=== PATIENT | female | born 1955 | race Caucasian/White ===

== ENCOUNTER 2018-08-11 08:29 | Day surgery (SDC) | payer BC, SELFPAY ==
[2018-08-11 08:30] VITALS: BP 135/77; PULSE 70; RESP 18; TEMP 36.3; O2SAT 99
[2018-08-11] MEDS: Lactated Ringers 1,000 ML 80 ML IV (09:19)
[2018-08-11] MEDS: ceFAZolin 2 GM/50 ML BAG IVPB (10:13)
[2018-08-11] MEDS: Lidocaine 1% Multi-Dose 50 ML VIAL (10:26)
--- NOTE | 2018-08-11 10:49 | PDOC.DSDIS_ITS ---
Discharge Plan Disposition Patient Disposition: HOME Condition: Good Discharge Details Reason For Visit: Tracy Solano's Tenosynovitis Attending Provider: Lauri Mayo Primary Care Provider: Scot Naidu Home Meds and New Rx's Prescriptions: New acetaminophen 500 mg tablet 1,000 mg PO Q8H PRN (Reason: pain) Qty: 60 RF: 3 hydrocodone-acetaminophen 5-325 mg tablet 1 tab PO Q4H PRN (Reason: pain) Qty: 6 RF: 0 ibuprofen 600 mg tablet 600 mg PO TID PRNQty: 60 RF: 3 Continued zolpidem [Ambien] 5 mg tablet 5 mg PO HS PRN (Reason: insomnia) Qty: 14 RF: 0 cetirizine [Zyrtec] 10 MG tablet 10 mg PO daily prn RF: 0 CBD OIL 1 applic Topical BID PRNRF: 0 CBD OIL 5 drp PO BID PRNRF: 0 paroxetine HCl 10 mg tablet 10 mg PO DAILY Qty: 30 RF: 3 Discontinued ibuprofen [Advil Liqui-Gel] 200 MG capsule 600 mg PO BID PRN RF: 0 meloxicam 15 mg tablet 15 mg PO DAILY PRN (Reason: pain) Qty: 30 RF: 5 Discharge Instructions Additional Instructions: Activity: You should keep the hand elevated as much as possible for the first few days. You may use the other fingers as tolerated but avoid trying to do too much too soon. You may perform light activities with the splint in place. After 7 days, you may remove the splint if you desire and use the hand for light activity. A removable brace may be worn in its place for comfort. Dressing/Cast: Your splint should stay in place at all times for the first 7 days. Do NOT get it wet. You may loosen the KHAI wrap if you feel it is too tight and then rewrap more loosely. You should keep a bandaid on the wound until followup. Medications: - You should take Tylenol and Ibuprofen for baseline pain control. - You have Hydrocodone for breakthrough pain. - You may apply ice over the thumb. Follow-up: 10-14 days Referrals: Lauri Mayo MD [ [facility] STAFF PHYSICIAN] - Equipment/Supplies: Splint Activity:: Elevate Remove Dressings/Wound Care:: 72 hours Shower/Bathe:: 72 hours Diet:: As Tolerated Discharge Orders Discharge Orders: Discharge Order (Routine); Ordered 08/11/18 Ordered By: Lauri Mayo DS: Diagnosis Discharge Diagnosis (1) Tenosynovitis, de Quervain: Status: Acute
[2018-08-11 11:25] VITALS: BP 126/79; PULSE 62; RESP 16; TEMP 35.9; O2SAT 98
--- NOTE | 2018-08-11 22:27 | W.PM.OP ---
Date of service: 08/11/18 Time of Service: 11:27 Operative Note DATE OF PROCEDURE: 08/11/18 PRE-OP DIAGNOSIS: Right Dequervain's Tenosynovitis POST-OP DIAGNOSIS: same PROCEDURE: Right First Extensor Compartment Release SURGEON: Lauri Mayo ANESTHESIA: MAC ESTIMATED BLOOD LOSS: 0 PATHOLOGY: none sent TOURNIQUET TIME: 14 COMPLICATIONS: None Patient was transported to: same day Patient's condition: stable Indications: Unruly is a 63-year-old female who has had symptoms of dequerveins tenosynovitis. Nonoperative treatment options had been trialed. Given their failure, I offered operative intervention. I reviewed the technical details of a first extensor compartment release. I reviewed the risk of the procedure to include bleeding, infection, pain, stiffness, tendon instability, damage to the superficial radial nerve, and complete release. Despite these risks, the patient elected to proceed. Findings: There was a tightened first excessive compartment. No subcompartments were seen encasing the EPB tendon. There were 2 main slips of APL tendon. Procedure Description: Unruly was greeted in the preoperative holding area. Name and surgical site were confirmed. The history and physical was completed. The consent was reviewed the patient and signed. Unruly was taken back to the operating room. The patient was placed and monitored anesthesia care. The RIGHT was then prepped with ChloraPrep and draped in a standard fashion after a nonsterile tourniquet was placed high up onto the arm. Prophylactic antibiotics in the form of cefazolin were administered. A timeout was performed for safe surgery. The surgical site was drawn on the skin. The planned surgical field was anesthetized with 0.25% bupivacaine with epinephrine. The limb was exsanguinated and the tourniquet was inflated where it stayed for 14 minutes. A 2 cm incision was made longitudinally over the radial styloid. The skin was incised only. The deep tissue subtenons fat was dissected with a tenotomy scissors trying to protect bridge of the superficial radial nerve. Any branches that were identified were retracted out of the way. The first compartment extensor tendons were then identified. The distal aspect of the first compartment was noted and were released. This release was performed more on the dorsal side to prevent tendon subluxation. The entirety of the first extensor compartment was then released. The slips of the abductor pollicis longus tendon were inspected. They removed to confirm the appropriate motion of the thumb. The extensor pollicis brevis tendon was then identified. It was fully released. Traction on the tendon was also used to confirm appropriate extension of the thumb confirming the release of the appropriate tendon. The dorsal radial surface of the radius was once again inspected to make sure there is no other sub-compartments or other restrictions to tendon motion. The wound was then thoroughly irrigated. The deep tissue was closed with a 3-0 Vicryl. The skin was closed with a running subjective 4-0 Monocryl. Skin glue was applied. The tourniquet is released without significant bleeding. The hand was dressed with 4 x 4's, web roll, thumb spica splint. I did occasional counts are correct. Patient was transferred back to same day surgery area in stable condition.
== END 2018-08-11 11:55 | disposition home or self-care (01) ==
PROVIDERS: PCP Family Medicine; Visit Provider Student in an Organized Health Care Education/Training Program
PROC: (CPT 25000; principal; 2018-08-11 10:15)
DX: M65.4 Radial styloid tenosynovitis [de Quervain] (principal)
CPT/HCPCS: 25000; J0690; J1885; L3650

== ENCOUNTER 2019-12-14 03:20 | Outpatient (CLI) | payer BC, SELFPAY ==
[2019-12-14 14:28] LABS: Abs Immature Grans 0.03 10^3/uL (0.0-0.06); Absolute Basophil Count 0.05 10^3/uL (0.0-0.2); Absolute Eosinophil Count 0.05 10^3/uL (0.0-0.7); Absolute Lymphocyte Count 2.32 10^3/uL (1.2-3.4); Absolute Monocyte Count 0.33 10^3/uL (0.1-0.8); Absolute Neutrophil Count 4.34 10^3/uL (1.2-6.7); Basophils % 0.7; Eosinophils % 0.7; HCT 45.5 % (36.0-46.0); HGB 14.7 g/dL (11.2-15.7); Immature Grans % 0.4; Lymphocytes % 32.6; MCH 31.3 pg (27.0-33.0); MCHC 32.3 % (32.0-36.0); MCV 96.8 fL (80-95); MPV 10.7 fL (8.0-11.0); Monocytes % 4.6; Nucleated RBC 0 %; Platelet Count 339 10^3/uL (130-400); RDW 12.5 % (11.7-14.6); RDW-SD 44.5 fL; WBC 7.12 10^3/uL (4.4-10.8)
[2019-12-14 14:57] LABS: Calculated LDL 138 mg/dL (<100); Cholesterol 219 mg/dL (<200); HDL Cholesterol 67 mg/dL (40-60); Triglyceride 70 mg/dL (<150)
[2019-12-14 15:08] LABS: ESR 11 mm/hr (0-30)
[2019-12-14 15:25] LABS: ALT 23 U/L (14-59); AST 15 U/L (15-37); Albumin 4.5 g/dL (3.4-5.0); Alkaline Phosphatase 94 U/L (46-116); Anion Gap 6.4 mmol/L (3-11); BUN 23 mg/dL (7-18); Bilirubin, Total 0.9 mg/dL (0.2-1.0); CO2 26.6 mmol/L (21.0-32.0); CREATININE 0.81 mg/dL (0.55-1.02); Calcium 9.7 mg/dL (8.5-10.1); Chloride 105 mmol/L (98-107); Glucose 97 mg/dL (74-106); Sodium 138 mmol/L (136-145); TSH 1.34 uIU/mL (0.36-3.74); Total Protein 7.7 g/dL (6.4-8.2); Vitamin B12 235 pg/mL (193-986)
[2019-12-14 15:26] LABS: C-Reactive Protein < 0.05 mg/dL (0.0-0.3)
[2019-12-14 19:42] LABS: FREE T4 1.17 ng/dL (0.76-1.46)
[2019-12-14 21:59] LABS: T3, Total 113 ng/dL (97-169)
[2019-12-15 15:17] LABS: Homocysteine 27.7 umol/L (5.0-13.9)
[2019-12-16 04:46] LABS: Vitamin D 25 Total 29.5 ng/ml (30-100)
[2019-12-16 10:36] LABS: Lipoprotein (a) <6 mg/dL (<=30)
[2019-12-17 14:03] LABS: Methylenetetrahydrofol Reduc M Heterozygous (Negative)
[2019-12-18 14:43] LABS: Methylmalonic Acid 0.28 nmol/mL (<=0.40)
== END 2019-12-14 03:40 ==
PROVIDERS: PCP Family Medicine; Visit Provider Naturopath
DX: E78.5 Hyperlipidemia, unspecified (principal); E53.8 Deficiency of other specified B group vitamins; M89.00 Algoneurodystrophy, unspecified site; F33.9 Major depressive disorder, recurrent, unspecified; F41.9 Anxiety disorder, unspecified; G47.00 Insomnia, unspecified
CPT/HCPCS: 36415; 80053; 80061; 80186; 81291; 82306; 82533; 82947; 83090; 83695; 85652; 82607; 82746; 84439; 84443; 84480; 85025; 86140

== ENCOUNTER 2020-01-18 18:21 | Outpatient (REF) | payer BC, SELFPAY ==
[2020-01-24 14:15] LABS: Campylobacter PCR Negative (Negative); Salmonella PCR Negative (Negative); Shiga Toxin PCR Negative (Negative); Shigella/Enteroinvasive Ecoli Negative (Negative)
== END 2020-01-18 18:41 ==
LOC: LBN 18:21
PROVIDERS: PCP Family Medicine; Visit Provider Physician Assistant
DX: R19.7 Diarrhea, unspecified (principal)
CPT/HCPCS: 87505

== ENCOUNTER 2020-02-01 01:49 | Outpatient (CLI) | payer BC, SELFPAY ==
[2020-02-01 12:39] LABS: Abs Immature Grans 0.01 10^3/uL (0.0-0.06); Absolute Basophil Count 0.03 10^3/uL (0.0-0.2); Absolute Eosinophil Count 0.06 10^3/uL (0.0-0.7); Absolute Lymphocyte Count 1.83 10^3/uL (1.2-3.4); Absolute Monocyte Count 0.34 10^3/uL (0.1-0.8); Absolute Neutrophil Count 2.88 10^3/uL (1.2-6.7); Basophils % 0.6; Eosinophils % 1.2; HCT 44.3 % (36.0-46.0); HGB 14.4 g/dL (11.2-15.7); Immature Grans % 0.2; Lymphocytes % 35.5; MCH 31.3 pg (27.0-33.0); MCHC 32.5 % (32.0-36.0); MCV 96.3 fL (80-95); MPV 11.4 fL (8.0-11.0); Monocytes % 6.6; Neutrophils % 55.9; Nucleated RBC 0 %; Platelet Count 344 10^3/uL (130-400); RDW 12.8 % (11.7-14.6); RDW-SD 45.5 fL; WBC 5.15 10^3/uL (4.4-10.8)
[2020-02-01 12:54] LABS: ALT 27 U/L (14-59); AST 19 U/L (15-37); Albumin 4.2 g/dL (3.4-5.0); Alkaline Phosphatase 72 U/L (46-116); Anion Gap 12.5 mmol/L (3-11); BUN 14 mg/dL (7-18); Bilirubin, Total 0.6 mg/dL (0.2-1.0); CO2 26.5 mmol/L (21.0-32.0); CREATININE 0.98 mg/dL (0.55-1.02); Calcium 9.6 mg/dL (8.5-10.1); Chloride 102 mmol/L (98-107); Estimated GFR 57.32 (mL/min/1.73m2); Glucose 107 mg/dL (74-106); Magnesium 2.1 mg/dL (1.8-2.4); Potassium 4.3 mmol/L (3.5-5.1); Sodium 141 mmol/L (136-145); Total Protein 7.3 g/dL (6.4-8.2)
== END 2020-02-01 02:09 ==
PROVIDERS: Physician Assistant; PCP Family Medicine; Visit Provider Naturopath
DX: R19.7 Diarrhea, unspecified (principal)
CPT/HCPCS: 36415; 80053; 83735; 85025

== ENCOUNTER 2020-08-14 15:04 | Outpatient (REF) | payer BC, SELFPAY ==
--- NOTE | 2020-08-14 14:35 | SKI_PTH ---
PATIENT: Unruly Reyes LOC: [facility] U#:[id number] AGE/SX: 65/F ROOM: RE08/14/[address]: OKSANA Farah : 1955 BED: DIS: 08/14/2020 SPEC #: [id number] RECD: 08/14/20 18:01 STATUS: RAYRAY STEELE #: [id number] TK: 08/14/20 14:[address]: Edgar Arzola DEPT: Surgical Specimen RECD BY: Courtney Enriquez ENTERED: 08/14/20 18:01 SP TYPE: MYRANDA MILLS DR: Scot Naidu MD Tissues: 1 - SKIN BIOPSY(SHAVE/PUNCH) Procedures: SKIN LEVEL 4 Comments: [id number]
== END 2020-08-14 15:05 | disposition home or self-care (01) ==
LOC: NCHCN 15:04
PROVIDERS: PCP Family Medicine; Visit Provider Physician Assistant
DX: D22.39 Melanocytic nevi of other parts of face (principal)
CPT/HCPCS: 88305

== ENCOUNTER → 2021-10-11 02:47 | Outpatient (CLI) | payer MEDICARE, SELFPAY ==
--- NOTE | 2021-10-11 11:06 | DI.MAMMO_ITS ---
Exam(s) MAMMO SCREENING EXAM: MAMMO SCREENING CLINICAL HISTORY: screening, Z12.39 TECHNIQUE: Mammograms were interpreted according to the usual protocol including computer analysis w PodPoster CAD system, tomosynthesis and C-view imaging. COMPARISON: 2014 FINDINGS: The breasts are composed of scattered fibroglandular densities, Breast Density category B. No suspicious masses or suspicious microcalcifications are seen. No skin thickening or abnormal axillary lymph nodes are seen. There has been no significant change from prior exam. IMPRESSION: BI-RADS Category 1, Negative mammogram Yearly screening mammography is recommended. Breast Density - Category B, scattered fibroglandular densities. A negative radiographic report should not delay biopsy if a dominant or clinically suspicious mass is present. Up to ten percent of cancers are not identified on mammography. A negative report may reinforce clinical impression. Adenosis and dense breasts may obscure an underlying neoplasm. False positive reports average 6 to 10%. Patient will receive a letter notifying them of these results.
== END ==
PROVIDERS: PCP Family Medicine; Visit Provider Family Medicine
DX: Z12.31 Encounter for screening mammogram for malignant neoplasm of breast (principal)
CPT/HCPCS: 77063; 77067

== ENCOUNTER 2021-11-01 11:38 | Emergency (ER) | payer MEDICARE, SELFPAY ==
[2021-11-01 12:18] VITALS: BP 165/114; PULSE 88; RESP 16; TEMP 36.7; O2SAT 100
--- NOTE | 2021-11-01 13:15 | RT.EKG_ITS ---
APPROVED REPORT Exam: Resting ECG Reason for Exam: shortness of breath Patient Location: E HR:86 bpm ECG Measurements Heart Rate 86 AXIS OK 143 P 64 QRSd 78 QRS 64 QT 377 T 66 QTc 451 Conclusion Sinus rhythm...normal P axis, V-rate 60- [address] depression, diffuse leads...ST <-0.07mV, ant/lat/inf. Sinus. No STEMI. I have reviewed and interpreted ECG and agree with software generated interpretation.
[2021-11-01 14:55] LABS: Abs Immature Grans 0.03 10^3/uL (0.0-0.06); Absolute Basophil Count 0.04 10^3/uL (0.0-0.2); Absolute Eosinophil Count 0.01 10^3/uL (0.0-0.7); Absolute Lymphocyte Count 2.08 10^3/uL (1.2-3.4); Absolute Monocyte Count 0.46 10^3/uL (0.1-0.8); Absolute Neutrophil Count 6.91 10^3/uL (1.2-6.7); Basophils % 0.4; Eosinophils % 0.1; HCT 46.3 % (36.0-46.0); Immature Grans % 0.3; Lymphocytes % 21.8; MCH 31.9 pg (27.0-33.0); MCHC 34.6 % (32.0-36.0); MCV 92 fL (80-95); MPV 11.2 fL (8.0-11.0); Monocytes % 4.8; Neutrophils % 72.6; Platelet Count 329 10^3/uL (130-400); RBC 5.02 10^6/uL (3.93-5.22); RDW 12.9 % (11.7-14.6); RDW-SD 43.4 fL; WBC 9.53 10^3/uL (4.4-10.8)
--- NOTE | 2021-11-01 15:00 | DI.CT_ITS ---
Exam(s) CT ABDOMEN PELVIS WO EXAM: CT ABDOMEN PELVIS WO CLINICAL HISTORY: left lower quadrant pain. TECHNIQUE: Imaging Protocol: Axial computed tomography images with coronal and sagittal reformatted images were created and reviewed. COMPARISON: CT ABD PELVIS WITH CONTRAST from 08/17/2014 FINDINGS: ABDOMEN: Lung Bases: There is atelectasis in the lung bases. There is a reticular nodular infiltrate in the r ight lung base. Liver: Normal density. No measurable mass. Gallbladder and biliary tract: No radiodense calculus or biliary ductal dilation. Pancreas: Normal density, no abnormal calcifications or inflammatory process. Spleen: Normal. Kidneys: Normal size, contour and axis.No radiodense stones or obstructive uropathy. There are few ti ny cortical hypodensities present which are stable and consistent with tiny cysts. Adrenal glands: No mass is seen. Lymph nodes: Within normal limits. Abdominal Aorta: Abdominal portion non-dilated. Mild atherosclerosis. PELVIS: Bladder:Symmetric distention, no gross wall thickening. Bowel: No obstruction or bowel wall thickening. Appendix is unremarkable. There is diverticulosis in the colon but no evidence of acute diverticulitis. Peritoneal cavity: No ascites, collection or mesenteric inflammatory response. No free air. Reproductive organs: There is a 2.8 cm by 3.8 cm right ovarian cyst. The right ovary measures 3.5 x 3.4 cm. The reproductive organs are otherwise unremarkable. Bones: Within normal limits. Soft Tissues: Within normal limits. IMPRESSION: 1. No evidence of nephrolithiasis or hydronephrosis. 2. Colonic diverticulosis but no evidence of acute diverticulitis. 3. 2.8 cm by 3.8 cm right ovarian cyst. Please correlate with the patient's clinical history. Nonem ergent pelvic ultrasound should be considered in this patient. 4. Small reticular nodular infiltrate in the right lung base. This is nonspecific. An infectious pr ocess cannot be excluded. Please correlate clinically. 5. Results of this exam have been verbally communicated with provider. RADIATION DOSE DELIVERED: 600.43mGy.cm Total DLP DATA REPOSITORY: All CT scans at this facility are submitted to the National Radiology Data Registry (NRDR) Dose Index Registry (DIR) with the [employer] (A[employer]). RADIATION OPTIMIZATION: All CT scans at this facility use at least one of these dose optimization te chniques: automated exposure control; mA and/or kV adjustment per patient size (includes targeted exa ms where dose is matched to clinical indication); or iterative reconstruction.
--- NOTE | 2021-11-01 15:04 | DI.RAD_ITS ---
Exam(s) XR CHEST 1V IN DI DEPT EXAM: XR CHEST 1V IN DI DEPT CLINICAL HISTORY: shortness of breath TECHNIQUE: 2D digital imaging was performed of the chest. One image was obtained. An AP view was ob tained. COMPARISON: No exams were available for comparison FINDINGS: MEDIASTINUM: Normal. HEART: Normal. PULMONARY VASCULATURE: Normal. LUNGS: Clear. PLEURAL SPACE: No pleural effusion or pneumothorax. BONE:Within normal limits for the patient's age. OTHER FINDINGS:Normal. IMPRESSION: No acute pulmonary findings. DATA REPOSITORY: RADIATION DOSE DELIVERED:
[2021-11-01] MEDS: LORazepam 20 MG/10 ML VIAL IVP (15:17)
[2021-11-01] MEDS: Normal Saline 1,000 ML 1000 ML IV (15:17)
[2021-11-01] MEDS: Ondansetron 4 MG/2 ML VIAL IVP (15:17)
[2021-11-01 15:19] VITALS: RESP 20
--- NOTE | 2021-11-01 15:39 | ED.GENADUL_ITS ---
Discharge Plan Disposition Patient Disposition: HOME Condition: Stable Discharge Details Clinical Impression: Pneumonia Primary Care Provider: Scot Naidu ED Provider: Courtney Muniz Home Meds and New Rx's Prescriptions: New doxycycline hyclate 100 mg capsule 100 mg PO BID Qty: 14 0RF metoclopramide HCl [Reglan] 10 mg tablet 10 mg PO Q6H PRNQty: 7 0RF Continued P-2 formulation w bupivacaine/o See Rx Instructions .ROUTE .COMPLEX Rx Instructions: 1-2 times per day prn ; cyclobenzaprine 10 mg tablet 10 mg PO TID PRN (Reason: muscle spasm) Qty: 10 0RF nabumetone 500 mg tablet 500 mg PO BID PRN (Reason: pain) Qty: 60 2RF lorazepam 0.5 mg tablet 0.5 mg PO QHS PRN (Reason: anxiety) Qty: 20 0RF ibuprofen 600 mg tablet 600 mg PO TID PRNQty: 60 3RF escitalopram oxalate 10 mg tablet 5 mg PO DAILY Discharge Instructions Instructions: Pneumonia (ED) Additional Instructions: Regular plan for nausea and vomiting Antibiotic until completed Follow-up with PCP in 1 to 2 days for reassessment Follow-up with your PCP for reassessment of your right ovarian cyst return earlier should you have new or worsening complaints Referrals: Scot Naidu MD [Primary Care Provider] - Discharge Data Discharge Date/Time-TO BE ENTERED AT DEPARTURE: 11/01/21 17:22 Medical Decision Making CO2 of 28, gap of 14, received IV fluid resuscitation, drinking fluids in room Feels marked improvement Able to tolerate p.o. Has evidence of possible pneumonia on imaging, will treat with doxycycline Zofran prescription as needed for nausea Return precautions discussed and patient expressed understanding Urine has blood noted Instructed to follow-up with PCP regarding this finding Medical Records Medical records reviewed: Yes I reviewed the patient's medical records. Lab Data Lab results reviewed: Yes I reviewed the patient's lab results. ECG Data Prior ECG tracings: available for review HPI General Date/Time Provider Initiated Documentation: 11/01/21 12:28 . HPI Narrative: This 66-year-old female With past Medical History of Diverticulitis, Hip Pain, Facial Lesion, sciatica presents with report of chills, back pain, subjective fevers. Denies any urinary complaints. States her symptoms are consistent with prior history of diverticulitis. Sent from the medical center for a CT scan reportedly. Denies any known exacerbating or alleviating factors. Denies history of alcohol or drug use. Related Data Home Medications Medication Instructions Recorded Confirmed ibuprofen 600 mg tablet 600 mg PO TID PRN #60 tabs 08/11/18 11/01/21 P-2 formulation w bupivacaine/o See Rx Instructions .Route .COMPLEX 03/30/19 11/01/21 cyclobenzaprine 10 mg tablet 10 mg PO TID PRN muscle spasm #10 06/20/20 11/01/21 tabs lorazepam 0.5 mg tablet 0.5 mg PO QHS PRN anxiety #20 tabs 06/27/21 11/01/21 nabumetone 500 mg tablet 500 mg PO BID PRN pain #60 tabs 06/27/21 11/01/21 doxycycline hyclate 100 mg capsule 100 mg PO BID #14 caps 11/01/21 escitalopram oxalate 10 mg tablet 5 mg PO DAILY 11/01/21 11/01/21 metoclopramide HCl 10 mg tablet 10 mg PO Q6H PRN #7 tabs 11/01/21 (Reglan) Previous Rx's Medication Instructions Recorded ibuprofen 600 mg tablet 600 mg PO TID PRN #60 tabs 08/11/18 cyclobenzaprine 10 mg tablet 10 mg PO TID PRN muscle spasm #10 06/20/20 tabs lorazepam 0.5 mg tablet 0.5 mg PO QHS PRN anxiety #20 tabs 06/27/21 nabumetone 500 mg tablet 500 mg PO BID PRN pain #60 tabs 06/27/21 doxycycline hyclate 100 mg capsule 100 mg PO BID #14 caps 11/01/21 metoclopramide HCl 10 mg tablet 10 mg PO Q6H PRN #7 tabs 11/01/21 (Reglan) Allergies Allergy/AdvReac Type Severity Reaction Status Date / Time methylprednisolone Allergy Severe Hives, Verified 11/01/21 12:23 [From Depo-Medrol] confused, hard to breath paroxetine [From Paxil] AdvReac Severe H/As, Verified 11/01/21 12:23 nausea, ringing in ears, stress incont vortioxetine AdvReac Severe NAUSEA, Verified 11/01/21 12:23 [From Trintellix] H/As, INCREASED IRRITATION General Stated Complaint: [facility] LUIS M: 3 Review of Systems All systems reviewed & are unremarkable except as noted in HPI and below PFSH All Active Problems (Updated 11/01/21 @ 16:48 by OKSANA Cross) Pneumonia (Acute) Welcome to Medicare preventive visit (Acute) Sciatica (Acute) Facial lesion (Acute) Hip pain, right (Acute) Diverticulitis (Chronic) Diarrhea (Acute) Low vitamin B12 level (Acute) Abdominal pain (Acute) Anxiety disorder (Acute) Depression (Chronic) with underlying anxiety Complex regional pain syndrome (Acute) Mood disorder (Acute 04/26/16) Right ankle pain (Chronic) Surgical History H/O hand surgery 08/11/18 Release of right hand first extensor compartment; Dr. Núñez H/O laparoscopy per pt fibroids History of ankle surgery ORIF rt per patient History of colonoscopy History of hysteroscopy Family History Grandmother Diabetes Essential hypertension Personal history of malignant neoplasm COLON Stroke Father Alcohol abuse Mental disorder depression Cancer of kidney Mother Mental disorder depression Chronic ITP (idiopathic thrombocytopenic purpura) Social History Smoking/Tobacco Use Status: Never Second Hand Exposure: No Smoking risk assessment performed?: Yes Alcohol Intake: current Alcohol Intake frequency: 0-2 drinks per day Alcohol type: beer and wine Drug use: Never Substance use type: does not use Caregiver/Support person: No Pets and animals: Yes Pets and animals: dog(s) Sexually active: Yes Do you think of yourself as: straight/heterosexual Current gender identity: female What is your relationship status?: How often do you talk on the phone with friends or family?: three or more times per week How often do you get together with friends or relatives?: decline to answer How often do you attend orthodoxy or jewish services?: decline to answer Do you belong to any clubs or organized social groups?: no Panel score (0-1 are the most socially isolated patients): 2 What type of physical activity do you participate in: walking Duration: 30-45 minutes/day Frequency: daily Mariana/Congregation: [employer] Special mariana needs: No Seatbelt use: always Drive intox or ride w/intox driver lifter of sanitation truck: No Do you feel safe at home: Yes Do you feel safe in your relationship?: Yes Exam Const General: cooperative, comfortable and no acute distress Chest Chest: normal inspection of the chest Resp Effort & Inspection: normal respiratory effort Auscultation: clear to auscultation bilaterally Cardio Rate: regular rate Rhythm: regular rhythm GI Other: Mild left lower quadrant tenderness Skin General skin exam: no rashes or lesions noted Neuro General: patient alert and patient oriented x3 Extrem Other: distal pulses intact no calf swelling or tenderness Course Vital Signs Vital signs: Vital Signs Temperature 36.7 C 11/01/21 12:18 Pulse 88 11/01/21 12:18 Respiratory Rate 16 11/01/21 12:18 Blood Pressure 165/114 H 11/01/21 12:18 Pulse Oximetry 100 11/01/21 12:18 Temperature 36.7 C 11/01/21 12:18 Temperature Source Temporal Artery Scan 11/01/21 12:18 Pulse 88 11/01/21 12:18 Respiratory Rate 20 11/01/21 15:19 Respiratory Effort 11/01/21 15:19 Respiratory Depth Normal 11/01/21 15:19 Respiratory Pattern Normal 11/01/21 15:19 Blood Pressure 165/114 H 11/01/21 12:18 Blood Pressure Position Sitting 11/01/21 12:18 Pulse Oximetry 100 11/01/21 12:18 Oxygen Delivery Method Room Air 11/01/21 12:18 Oxygen Flow Rate 0 11/01/21 12:18 Pain Level 0 11/01/21 12:18 Lab/Test Results Lab/Test Results: Laboratory Tests Range/Units 11/01/21 11/01/21 11/01/21 14:45 14:45 14:45 WBC (4.4-10.8) 10^3/uL 9.53 RBC (3.93-5.22) 10^6/uL 5.02 Hgb (11.2-15.7) g/dL 16.0 H Hct (36.0-46.0) % 46.3 H MCV (80-95) fL 92 MCH (27.0-33.0) pg 31.9 MCHC (32.0-36.0) % 34.6 RDW (11.7-14.6) % 12.9 Plt Count (130-400) 10^3/uL 329 MPV (8.0-11.0) fL 11.2 H Immature Gran % 0.3 Neutrophils % 72.6 Lymphocytes % 21.8 Monocytes % 4.8 Eosinophils % 0.1 Basophils % 0.4 Nucleated RBC % (0.0-0.3) % 0.0 Absolute Neutrophils (1.2-6.7) 10^3/uL 6.91 H Absolute Lymphocytes (1.2-3.4) 10^3/uL 2.08 Absolute Monocytes (0.1-0.8) 10^3/uL 0.46 Absolute Eosinophils (0.0-0.7) 10^3/uL 0.01 Absolute Basophils (0.0-0.2) 10^3/uL 0.04 Sodium Cancelled Potassium Cancelled Chloride Cancelled Carbon Dioxide Cancelled Anion Gap Cancelled BUN Cancelled Creatinine Cancelled Estimated GFR/1.73 m2 Cancelled Glucose Cancelled Calcium Cancelled Magnesium Cancelled Total Bilirubin Cancelled AST Cancelled ALT Cancelled Alkaline Phosphatase Cancelled Total Protein Cancelled Albumin Cancelled Lipase Cancelled
[2021-11-01 15:45] LABS: Bilirubin Negative (Negative); Blood Moderate (Negative); Clarity Clear (Clear); Glucose Negative (Negative); Ketones 80 mg/dL (Negative); Leukocyte Esterase Negative (Negative); Nitrite Negative (Negative); Specific Gravity >= 1.030 (1.005-1.025); Urobilinogen 0.2 EU/dL (Up TO 0.2)
[2021-11-01 15:56] LABS: Bacteria Negative HPF (Negative); C & S Indicated? No; Casts Negative LPF (Negative); Crystals Negative HPF (Negative); Epithelial Cells Few HPF (Negative); Mucus Negative (Negative); WBC 0-2 HPF (0-5)
[2021-11-01 15:58] LABS: ALT 19 U/L (14-59); AST 18 U/L (15-37); Alkaline Phosphatase 68 U/L (46-116); Anion Gap 14.3 mmol/L (3-11); BUN 16 mg/dL (7-18); CO2 20.7 mmol/L (21.0-32.0); CREATININE 0.8 mg/dL (0.55-1.02); Chloride 109 mmol/L (98-107); Glucose 104 mg/dL (74-106); Lipase 37 U/L (73-393); Magnesium 1.8 mg/dL (1.8-2.4); Potassium 3.6 mmol/L (3.5-5.1); Sodium 144 mmol/L (136-145); Total Protein 7.1 g/dL (6.4-8.2)
[2021-11-01 17:06] VITALS: BP 145/75; PULSE 79; RESP 16; TEMP 36.7; O2SAT 96
== END 2021-11-01 17:22 | disposition home or self-care (01) ==
PROVIDERS: Emergency Provider Physician Assistant; PCP Family Medicine
DX: J18.9 Pneumonia, unspecified organism (principal)
CPT/HCPCS: 80053; 83690; 93005; 96361; 96374; 96375; 99284; 71045; 74176; 81003; 81015; 83735; 85025; 93010; J2405; J3490

== ENCOUNTER 2021-11-05 16:10 | Outpatient (REF) | payer MEDICARE, SELFPAY ==
[2021-11-07 11:23] LABS: COVID-19 RT-PCR UVMMC Result Negative (Negative)
== END 2021-11-05 16:11 | disposition home or self-care (01) ==
LOC: LBN 16:10
PROVIDERS: PCP Family Medicine; Visit Provider Emergency Medicine
DX: Z20.822 Contact with and (suspected) exposure to COVID-19 (principal)
CPT/HCPCS: U0003

== ENCOUNTER → 2022-01-07 02:46 | Outpatient (CLI) | payer MEDICARE, SELFPAY ==
--- NOTE | 2022-01-07 07:45 | DI.US_ITS ---
Exam(s) US PELVIS TRANSVAGINAL EXAM: US PELVIS TRANSVAGINAL CLINICAL HISTORY: ovarian cyst,N83.209 TECHNIQUE: Transabdominal and transvaginal imaging was performed using standard protocol. COMPARISON: CT CT ABDOMEN PELVIS WO from 11/01/2021 FINDINGS: KIDNEYS: Kidneys are symmetric in size. No evidence of renal calculi. No evidence of hydronephrosis. No renal mass or cyst identified. UTERUS: Anteverted. 5.5 x 3.0 x 4.3 cm Endometrium: 6 millimeters. Homogeneous. This is thickened for postmenopausal patient. Myometrium: Unremarkable. Cervix: Small amount of fluid is noted in the endocervical canal. Nabothian cyst. OVARIES: Right: 3.7 x 3.7 x 4.8 cm. Cyst or mass: None. Left: 1.1 x 0.7 x 1.7 cm. Cyst or mass: 2.1 centimeter diameter solid-appearing lesion with adjacent cyst measuring 3.2 x 3.7 cm. DOPPLER: Color: Symmetric and uniform flow to both ovaries. No hyperemia. Duplex: Normal ovarian arterial waveforms visualized. CUL-DE-SAC: Free fluid: None. IMPRESSION: Thickening of the endometrial stripe at 6 millimeters. Right ovarian mass with cystic and solid components. MRI recommended for further evaluation. DATA REPOSITORY:
== END ==
PROVIDERS: PCP Family Medicine; Visit Provider Obstetrics & Gynecology
DX: N83.292 Other ovarian cyst, left side (principal); R93.89 Abnormal findings on diagnostic imaging of other specified body structures
CPT/HCPCS: 76830; 76856

== ENCOUNTER 2022-05-26 13:44 | Emergency (ER) | payer MEDICARE, SELFPAY ==
[2022-05-26] VITALS (31 sets, daily range): BP systolic 77–160; BP diastolic 50–141; PULSE 83–123; RESP 22; TEMP 37.2; O2SAT 94–100
--- NOTE | 2022-05-26 14:15 | RT.EKG_ITS ---
APPROVED REPORT Exam: Resting ECG Reason for Exam: shortness of breath Patient Location: E HR:91 bpm ECG Measurements Heart Rate 91 AXIS HI 153 P 71 QRSd 80 QRS 75 QT 346 T -80 QTc 426 Conclusion Sinus rhythm...normal P axis, V-rate 60- 99
--- NOTE | 2022-05-26 14:15 | DI.RAD_ITS ---
Exam(s) XR PORTABLE CHEST AP EXAM: XR PORTABLE CHEST AP CLINICAL HISTORY: shortness of breath TECHNIQUE: 2D digital imaging was performed of the chest. One image was obtained. An AP view was ob tained. COMPARISON: CR XR CHEST 1V IN DI DEPT from 11/01/2021 FINDINGS: MEDIASTINUM: Normal. HEART: Normal. PULMONARY VASCULATURE: Normal. LUNGS: Clear. PLEURAL SPACE: No pleural effusion or pneumothorax. BONE:Within normal limits for the patient's age. OTHER FINDINGS:Normal. IMPRESSION: No acute pulmonary findings. DATA REPOSITORY: RADIATION DOSE DELIVERED:
[2022-05-26] MEDS: Albuterol/Ipratropium 3 ML UPD VIAL UPD (14:31)
[2022-05-26] MEDS: LORazepam 2 MG/ML VIAL 1 MG IVP (14:35)
[2022-05-26] MEDS: Lactated Ringers 1,000 ML 1000 ML IV ×2 (14:36→16:50)
[2022-05-26] MEDS: Ondansetron 4 MG/2 ML VIAL IVP (14:37)
[2022-05-26 14:50] LABS: Abs Immature Grans 0.02 10^3/uL (0.0-0.06); Absolute Basophil Count 0.02 10^3/uL (0.0-0.2); Absolute Eosinophil Count 0.01 10^3/uL (0.0-0.7); Absolute Lymphocyte Count 0.82 10^3/uL (1.2-3.4); Absolute Monocyte Count 0.32 10^3/uL (0.1-0.8); Absolute Neutrophil Count 4.16 10^3/uL (1.2-6.7); Basophils % 0.4; Eosinophils % 0.2; HCT 52.6 % (36.0-46.0); HGB 17.5 g/dL (11.2-15.7); Immature Grans % 0.4; Lymphocytes % 15.3; MCH 31.2 pg (27.0-33.0); MCHC 33.3 % (32.0-36.0); MCV 94 fL (80-95); MPV 10.8 fL (8.0-11.0); Neutrophils % 77.7; Platelet Count 250 10^3/uL (130-400); RBC 5.61 10^6/uL (3.93-5.22); RDW 12.4 % (11.7-14.6); RDW-SD 43.5 fL; WBC 5.35 10^3/uL (4.4-10.8)
[2022-05-26 15:01] LABS: COVID-19 PCR Negative (Negative); Influenza A PCR Negative (Negative); Influenza B PCR Negative (Negative); RSV PCR Negative (Negative)
[2022-05-26 15:03] LABS: ALT 26 U/L (14-59); AST 25 U/L (15-37); Albumin 4.2 g/dL (3.4-5.0); Alkaline Phosphatase 88 U/L (46-116); Anion Gap 15.3 mmol/L (3-11); BUN 19 mg/dL (7-18); Bilirubin, Total 0.9 mg/dL (0.2-1.0); CO2 22.7 mmol/L (21.0-32.0); CREATININE 1.1 mg/dL (0.55-1.02); Calcium 9.5 mg/dL (8.5-10.1); Chloride 102 mmol/L (98-107); Estimated GFR 55.42 (mL/min/1.73m2); Glucose 109 mg/dL (74-106); Potassium 3.5 mmol/L (3.5-5.1); Sodium 140 mmol/L (136-145)
[2022-05-26 15:13] LABS: Source Nasopharynx
--- NOTE | 2022-05-26 15:47 | DI.VRAD_ITS ---
PROCEDURE INFORMATION: Exam: XR Chest Exam date and time: 05/26/2022 3:00 PM Age: 67 years old Clinical indication: Shortness of breath TECHNIQUE: Imaging protocol: Radiologic exam of the chest. Views: 1 view. COMPARISON: CR XR CHEST 1V IN DI DEPT 11/01/2021 2:59 PM FINDINGS: Lungs: Unremarkable. No consolidation. Pleural spaces: Unremarkable. No pleural effusion. No pneumothorax. Heart/Mediastinum: Unremarkable. No cardiomegaly. Bones/joints: Unremarkable. IMPRESSION: No acute findings. Dictated and Authenticated by: Nikkie Chong MD. Ordering:KEHINDE Valdez MD
--- NOTE | 2022-05-26 16:00 | ED.GENADUL_ITS ---
Discharge Plan Disposition Patient Disposition: Home Condition: Stable Discharge Details Clinical Impression: Nausea & vomiting, Bronchitis, Dehydration Primary Care Provider: Scot Naidu ED Provider: Courtney Muniz Home Meds and New Rx's Prescriptions: New prochlorperazine maleate [Compazine] 10 mg tablet 10 mg PO Q6H PRNQty: 10 0RF doxycycline hyclate 100 mg tablet 100 mg PO BID 7 Days Qty: 14 0RF Continued estradiol 0.01 % (0.1 mg/gram) cream 0.5 g vaginal DAILY Qty: 42.5 0RF Rx Instructions: Also massage a pea-sized amount around the vaginal opening. Use nightly for 14 days, then decrease use to 2-3x weekly. May increase to 1g if still discomfort nabumetone 500 mg tablet 500 mg PO BID PRN (Reason: pain) Qty: 60 2RF lorazepam 0.5 mg tablet 0.5 mg PO QHS PRN (Reason: anxiety) Qty: 20 0RF ibuprofen 600 mg tablet 600 mg PO TID PRNQty: 60 3RF Discharge Instructions Instructions: Dehydration (ED) Additional Instructions: Take Compazine as needed for nausea and vomiting Use the albuterol, 2 puffs every 4-6 hours as needed for cough, wheeze, shortness of breath Take the antibiotic as prescribed Regular clear liquids, bland diet as tolerated Return earlier should you have any worsening complaints Referrals: Scot Naidu MD [Primary Care Provider] - Discharge Data Discharge Date/Time-TO BE ENTERED AT DEPARTURE: 05/26/22 17:41 Medical Decision Making 67-year-old female presents with nausea and vomiting, shortness of breath, cough Feels quite anxious and took Ativan prior to arrival without significant improvement in symptoms Patient in the emergency department received Zofran, fluids, albuterol treatment, she is feeling marked improvement and we are performing p.o. challenge at this time She is dehydrated with a gap of 15, will give 2 L of LR, chest x-ray does not show evidence of pneumonia per radiology interpretation my review Because she is dehydrated we may not be able to assess for pneumonia on x-ray, because of this and her symptoms for greater than a week we will order doxyc ycline, prednisone, albuterol, and cue patient for discharge home tachycardia has resolved, oxygen 98% RA, resting comfortably in room and requests dc home at this time recheck in 48 hours return precautions reviewed and pt expressed understanding Medical Records Medical records reviewed: Yes I reviewed the patient's medical records. HPI General Date/Time Provider Initiated Documentation: 05/26/22 13:53 . HPI Narrative: This 67-year-old female presents with nausea and vomiting with shortness of breath and cough that started approximately a week ago. She states her had similar symptoms that her symptoms have since resolved. She denies any chest discomfort. She states she is felt quite anxious because she has been vomiting and coughing. She denies any fever or chills. She denies any history of coagulopathy. She denies any calf pain or swelling. She did take an Ativan prior to arrival and it did not help her symptoms. She states she has not been able to eat or drink much secondary to feeling nauseous and vomiting. She denies history of asthma or COPD but did have pneumonia approximately a year ago Related Data Home Medications Medication Instructions Recorded Confirmed ibuprofen 600 mg tablet 600 mg PO TID PRN #60 tabs 08/11/18 05/29/22 nabumetone 500 mg tablet 500 mg PO BID PRN pain #60 tabs 06/27/21 05/29/22 estradiol 0.01% (0.1 mg/gram) 0.5 g vaginal DAILY #42.5 grams 12/05/21 05/29/22 vaginal cream lorazepam 0.5 mg tablet 0.5 mg PO QHS PRN anxiety #20 tabs 05/06/22 05/29/22 doxycycline hyclate 100 mg tablet 100 mg PO BID 7 days #14 tabs 05/26/22 05/29/22 prochlorperazine maleate 10 mg 10 mg PO Q6H PRN #10 tabs 05/26/22 05/29/22 tablet (Compazine) Previous Rx's Medication Instructions Recorded ibuprofen 600 mg tablet 600 mg PO TID PRN #60 tabs 08/11/18 nabumetone 500 mg tablet 500 mg PO BID PRN pain #60 tabs 06/27/21 estradiol 0.01% (0.1 mg/gram) 0.5 g vaginal DAILY #42.5 grams 12/05/21 vaginal cream lorazepam 0.5 mg tablet 0.5 mg PO QHS PRN anxiety #20 tabs 05/06/22 doxycycline hyclate 100 mg tablet 100 mg PO BID 7 days #14 tabs 05/26/22 prochlorperazine maleate 10 mg 10 mg PO Q6H PRN #10 tabs 05/26/22 tablet (Compazine) Allergies Allergy/AdvReac Type Severity Reaction Status Date / Time methylprednisolone Allergy Severe Hives, Verified 05/26/22 13:58 [From Depo-Medrol] confused, hard to breath paroxetine [From Paxil] AdvReac Severe H/As, Verified 05/26/22 13:58 nausea, ringing in ears, stress incont vortioxetine AdvReac Severe NAUSEA, Verified 05/26/22 13:58 [From Trintellix] H/As, INCREASED IRRITATION General Stated Complaint: RespSymp LUIS M: 3 PFSH All Active Problems (Updated 05/26/22 @ 15:47 by OKSANA Cross) Nausea & vomiting (Acute) Bronchitis (Acute) Dehydration (Acute) Complex cyst of right ovary (Acute) Pelvic pain (Acute) Atrophic vaginitis (Acute) Sciatica (Acute) Facial lesion (Acute) Hip pain, right (Acute) Diverticulitis (Chronic) Diarrhea (Acute) Low vitamin B12 level (Acute) Abdominal pain (Acute) Anxiety disorder (Acute) Depression (Chronic) with underlying anxiety Complex regional pain syndrome (Acute) Mood disorder (Acute 04/26/16) Right ankle pain (Chronic) Surgical History H/O hand surgery 08/11/18 Release of right hand first extensor compartment; Dr. Núñez H/O laparoscopy per pt fibroids History of ankle surgery ORIF rt per patient History of colonoscopy History of hysteroscopy Family History Grandmother Diabetes Essential hypertension Personal history of malignant neoplasm COLON Stroke Father Alcohol abuse Mental disorder depression Cancer of kidney Mother Mental disorder depression Chronic ITP (idiopathic thrombocytopenic purpura) Social History Smoking/Tobacco Use Status: Never Second Hand Exposure: No Smoking risk assessment performed?: Yes Alcohol Intake: current Alcohol Intake frequency: 0-2 drinks per day Alcohol type: beer and wine Drug use: Never Substance use type: does not use Caregiver/Support person: No Pets and animals: Yes Pets and animals: dog(s) Sexually active: Yes Do you think of yourself as: straight/heterosexual Current gender identity: female What is your relationship status?: How often do you talk on the phone with friends or family?: three or more times per week How often do you get together with friends or relatives?: decline to answer How often do you attend yazidi or shinto services?: decline to answer Do you belong to any clubs or organized social groups?: no Panel score (0-1 are the most socially isolated patients): 2 What type of physical activity do you participate in: walking Duration: 30-45 minutes/day Frequency: daily Mariana/Nondenominational: Pentecostalism Special mariana needs: No Seatbelt use: always Drive intox or ride w/intox refrigerated company driver: No Do you feel safe at home: Yes Do you feel safe in your relationship?: Yes Female Reproductive History Menstrual Age of Menarche: 15 History History 3 Para 3 Hx # Term Pregnancies 3 Multiple births Hx # Pregnancies Ectopic pregnancies AB induced Hx Number of Living Children 3 AB spontaneous Past Pregnancies Del. Date GA/Weeks # Preg Succ Route Wgt Sex Labor Lgth Anesth esia Location Prov Complic 09/01/81 40 No Yes vaginal 3175.147 g Male 09/16/82 40 No Yes vaginal 3175.147 g Female 08/17/89 40 No Yes vaginal 3175.147 g Female Exam Const General: cooperative, comfortable and ill appearing Orientation: alert and oriented x3 HENMT Mouth: oral mucosae normal Eyes Sclera: sclerae normal Resp Effort & Inspection: normal respiratory effort Auscultation: clear to auscultation bilaterally Cardio Rate: regular rate Rhythm: regular rhythm GI Inspection: normal to inspection Skin General skin exam: no rashes or lesions noted Neuro General: patient alert and patient oriented x3 Extrem Other: no calf swelling or tenderness Course Vital Signs Vital signs: Vital Signs Temperature 37.2 C 05/26/22 13:51 Pulse 123 H 05/26/22 13:51 Respiratory Rate 22 05/26/22 13:51 Blood Pressure 160/101 H 05/26/22 13:51 Pulse Oximetry 97 05/26/22 13:51 Temperature 37.2 C 05/26/22 13:51 Temperature Source Oral 05/26/22 13:51 Pulse 123 H 05/26/22 13:51 Respiratory Rate 22 05/26/22 13:51 Respiratory Effort 05/26/22 14:22 Respiratory Depth Normal 05/26/22 14:22 Blood Pressure 160/101 H 05/26/22 13:51 Blood Pressure Position Sitting 05/26/22 13:51 Pulse Oximetry 97 05/26/22 13:51 Oxygen Delivery Method Room Air 05/26/22 13:51 Oxygen Flow Rate 0 05/26/22 13:51 Pain Level 0 05/26/22 13:51 Lab/Test Results Lab/Test Results: Laboratory Tests Range/Units 05/26/22 05/26/22 05/26/22 14:05 14:10 14:10 WBC (4.4-10.8) 10^3/uL 5.35 RBC (3.93-5.22) 10^6/uL 5.61 H Hgb (11.2-15.7) g/dL 17.5 H Hct (36.0-46.0) % 52.6 H MCV (80-95) fL 94 MCH (27.0-33.0) pg 31.2 MCHC (32.0-36.0) % 33.3 RDW (11.7-14.6) % 12.4 Plt Count (130-400) 10^3/uL 250 MPV (8.0-11.0) fL 10.8 Immature Gran % 0.4 Neutrophils % 77.7 Lymphocytes % 15.3 Monocytes % 6.0 Eosinophils % 0.2 Basophils % 0.4 Nucleated RBC % (0.0-0.3) % 0.0 Absolute Neutrophils (1.2-6.7) 10^3/uL 4.16 Absolute Lymphocytes (1.2-3.4) 10^3/uL 0.82 L Absolute Monocytes (0.1-0.8) 10^3/uL 0.32 Absolute Eosinophils (0.0-0.7) 10^3/uL 0.01 Absolute Basophils (0.0-0.2) 10^3/uL 0.02 Sodium (136-145) mmol/L 140 Potassium (3.5-5.1) mmol/L 3.5 Chloride (98-107) mmol/L 102 Carbon Dioxide (21.0-32.0) mmol/L 22.7 Anion Gap (3-11) mmol/L 15.3 H BUN (7-18) mg/dL 19 H Creatinine (0.55-1.02) mg/dL 1.1 H Est GFR (CKD-EPI 2020) (mL/min/1.73m2) 55.42 Glucose (74-106) mg/dL 109 H Calcium (8.5-10.1) mg/dL 9.5 Total Bilirubin (0.2-1.0) mg/dL 0.9 AST (15-37) U/L 25 ALT (14-59) U/L 26 Alkaline Phosphatase (46-116) U/L 88 Total Protein (6.4-8.2) g/dL 8.0 Albumin (3.4-5.0) g/dL 4.2 COVID-19 Source Nasopharynx SARS-CoV-2 (PCR) (Negative) Negative Influenza Type A (PCR) (Negative) Negative Influenza Type B (PCR) (Negative) Negative RSV (PCR) (Negative) Negative PAWSS Have you Been Recently Intoxicated or Drunk Within the Last 30 days?: No Have you Ever Experienced Previous Episodes of Alcohol Withdrawal?: No Have you ever Experienced Withdrawal Seizures?: No Have you ever Experienced Delirium Tremens(DT)s?: No Have you ever undergone Alcohol Rehabilitation Treatment (i.e, inpt ot outpatient treatment programs)?: No Have you ever Experienced Blackouts?: No Have you ever Combined Alcohol with other Downers within the last 90 days?: No Have you ever Combined Alcohol with any other Substance of Abuse during the last 90 days?: No Positive Blood Alcohol level on Presentation? [PCS.BAL]: No Evidence of Increased Autonomic Activity (i.e. HR>120, tremor, sweating, agitation, nausea)?: No Result: 0
[2022-05-26 16:28] LABS: Bilirubin Small (Negative); Blood Moderate (Negative); Clarity Clear (Clear); Glucose Negative (Negative); Ketones 80 mg/dL (Negative); Leukocyte Esterase Negative (Negative); Nitrite Negative (Negative); Urobilinogen 0.2 EU/dL (Up TO 0.2); pH 5.5 (5-8)
[2022-05-26 16:36] LABS: Bacteria Negative HPF (Negative); C & S Indicated? No; Casts 0-2 Hyaline LPF (Negative); Crystals Negative HPF (Negative); Epithelial Cells Few HPF (Negative); Mucus Negative (Negative); WBC 0-2 HPF (0-5)
[2022-05-26] MEDS: Doxycycline Hyclate 100 MG CAP PO (17:27)
[2022-05-26] MEDS: Albuterol HFA 8 GM 60 PUFF INH IH (17:27)
[2022-05-26] MEDS: Prochlorperazine 10 MG TAB PO (17:28)
== END 2022-05-26 17:41 | disposition home or self-care (01) ==
PROVIDERS: Emergency Provider Physician Assistant; PCP Family Medicine
DX: J40 Bronchitis, not specified as acute or chronic (principal); R11.2 Nausea with vomiting, unspecified; E86.0 Dehydration; Z20.822 Contact with and (suspected) exposure to COVID-19
CPT/HCPCS: 80053; 87637; 93005; 96361; 96374; 96375; 99284; 71045; 81003; 81015; 85025; 93010; J2060; J2405; J7620

== ENCOUNTER 2023-12-26 00:20 | Outpatient (CLI) | payer MEDICARE, SELFPAY ==
--- OUTSIDE RECORDS SUMMARY | 2023-12-26 00:22 | XMS_ITS | Encounter Summary ---
Author Organization [facility] [place] [address] Care Team Providers Care Manager Nc Name Role Phone Scot Naidu MD Primary Care Provider [phone] Encounter Details Date Type Department Care Team (Late st Contact Info) Description 01/25/2022 12:30 PM EDT Clinical [place] [address] Social History Tobacco Use Types Packs/Day Years Used Date Smoking Tobacco: Never Smokeless Tobacco: Never Alcohol Use Standard Drinks/Week Comments Yes 0 (1 standard drink = 0.6 oz pur e alcohol) seldom Sex and Gender Information Value Date Recorded Sex Assigned at Not on file Gender Identity Not on file Sexual Orientation Not on file documented as of this encounter Progress Notes * Carl Pillai RN - 01/25/2022 12:30 PM EDT PAT questionnaire reviewed with patient while in Pre Admission testing. Pre- operative instruction booklet reviewed. Patient verbalizes a good understanding of all information reviewed. Patient has had general anesthesia previously at another facility without a problem. Pre Surgery Covid screening patient response: No PLAN: Testing: No testing ordered at this time Procedure date: 02/05 Danielle documented in this encounter Plan of Treatment Not on file documented as of this encounter Visit Diagnoses Not on filedocumented in this encounter Care Teams Manager Nc Relationship Specialty Start Date End Date Scot Naidu MD [address] [place] [address] PCP - General 10/14/14 documented as of this encounter
--- OUTSIDE RECORDS SUMMARY | 2023-12-26 00:22 | XMS_ITS | Encounter Summary ---
Author Organization [facility] [place] [address] Care Team Providers Care Mixing Machine Operator Name Role Phone Scot Naidu MD Primary Care Provider [phone] Encounter Details Date Type Department Care Team (Latest Contact Info) Description 02/05/2022 9:16 AM EDT - 02/05/2022 3:05 PM EDT Hospital [place] [address] Valerie Santos MD [facility] [place] [address] Post-operative state Discharge Disposition: Home Social History Tobacco Use Types Packs/Day Years Used Date Smoking Tobacco: Never Smokeless Tobacco: Never Alcohol Use Standard Drinks/Week Comments Yes 0 (1 standard drink = 0.6 oz pur e alcohol) seldom Sex and Gender Information Value Date Recorded Sex Assigned at Not on file Gender Identity Not on file Sexual Orientation Not on file documented as of this encounter Last Filed Vital Signs Vital Sign Reading Time Taken Comments Blood Pressure 151/85 02/05/2022 2:30 PM EDT Pulse 62 02/05/2022 10:43 AM EDT Temperature 36.3 ??C (97.3 ??F) 02/05/2022 1:18 PM ED T Respiratory Rate 16 02/05/2022 1:30 PM EDT Oxygen Saturation 99% 02/05/2022 2:30 PM EDT Inhaled Oxygen Concentration - - Weight 56.6 kg (124 lb 11.2 oz) 022 10:43 AM EDT Height - - Body Mass Index 20.78 01/25/2022 10:46 AM EDT documented in this encounter Discharge Instructions * Patient Instructions* Anita Cisse MD - 02/05/2022 9:21 AM EDT PATIENT DISCHARGE INSTRUCTIONS Gynecologic Oncology phone number: [phone] (Nurse ext 4 then 4; appointment ext 1 then 4). After hours and on weekends please call hospital transfer operator at [phone] and ask for Gynecologic Oncologist electronic typesetting machine operator. Call your doctor if you develop: --A fever over 101 degrees --Severe pain --Increasing pain, redness, or discharge at any of your incisions --Heavy vaginal bleeding-soaking through a pad an hour -Follow-up with be with Dr. Santos 03/07 at 9:40 AM via telehealth. Please log in 15 minutes ahead. Future Appointments Date Time Provider Department Center 03/07/2022 9:40 AM Valerie Santos MD [facility] NURSING UNIT COORDINATOR 3K [facility] Activity level: No restrictions. Activity as tolerated Diet: You may resume your regular diet. Be sure you drink plenty of fluids. Please use colace 100-200 mg twice daily for the entire time that you are taking pain medication to keep your bowel movements soft and regular. If you are constipated or have not had a bowel movement in 3 days, please use milk of magnesia (or miralax) as directed over the counter. Driving: Do not drive until you are are not feeling pain; usually about 2 weeks. Shower/Bath: Showering is fine. Short baths are OK but you should avoid having any abdominal incision submerged for more than 10-15 minutes for the next 2 weeks. Wound Care: Your incisions are closed with surgical grade glue and dissolvable suture. The stiches will dissolve on their own and do not need to be removed. Pain medications: - Please use ibuprofen 600 mg every 6 hours with food around the clock for the next several days and then after that use it only as needed. - Please use Tylenol 1000 mg every 8 hours around the clock for the next several days and then as needed for pain documented in this encounter Medications at Time of Discharge Medication Sig Dispensed Refills Start Date End Date acetaminophen (Tylenol) 500 mg Tablet Take 2 tablets by mouth every 8 hours as needed for Pain. 30 tablet 1 02/05/2022 ibuprofen (Advil) 600 mg Tablet Take 1 tablet by mouth every 6 hours as needed for Pain. 30 tablet 1 02/05/2022 LORazepam (Ativan) 0.5 mg Tablet TAKE ONE TABLET BY MOUTH AT BEDTIME NEEDED FOR ANXIETY 01/16/2022 escitalopram (Lexapro) 10 mg Tablet Take 5 mg by mouth daily. PT cuts in half takes 5mg once daily 10/03/2021 documented as of this encounter Progress Notes * Darian Ballard RN - 02/05/2022 4:50 AM EDT Patient alert and oriented, vital signs stable. Reviewed discharge instructions; patient and verbalized understanding. Copy of instruction sheet with contact numbers for questions/concerns with patient and . Pain assessment documented. documented in this encounter H&P Notes * Valerie Santos MD - 02/05/2022 10:54 AM EDT Pre-Operative Interval H&P Note Patient ID: Unruly Reyes is a 66 y.o. with complex ovarian mass presenting for scheduled bilateral salpingo-oophorectomy, with frozen section and possible staging. PMH notable for depression, anxiety, hx diverticulitis, complex regional pain syndrome following right hand surgery. I have reviewed the pre-procedure H&P completed by Dr. Santos on 01/25/2022. (x) Condition unchanged since H&P originally performed. Interval Note: Patient seen in same day area. Consent in chart. No changes since preop visit. No new meds/allergies or hospital/ER visits. Pt denies SOB, chest pain. Pt states allergies to: cortisoneshots and food allergies. Denies allergy to antibioitics. Objective: Patient Vitals for the past 24 hrs: Temp Pulse Resp BP SpO2 O2 Device 02/05/22 1043 36.4 ??C (97.5 ??F) 62 14 148/74 99 % RA Gen: Appears well, no acute distress Heart: Regular rate and rhythm, no murmurs, rubs, or gallops Lungs: Clear to auscultation bilaterally, no wheezes, rales, or rhonchi Pelvic: deferred to OR Assessment: Unruly Reyes is a 66 y.o. with complex ovarian mass presenting for scheduled bilateral salpingo-oophorectomy, with frozen section and possible staging. PMH notable for depression, anxiety, hx diverticulitis, complex regional pain syndrome following right hand surgery. Plan: Proceed with scheduled surgery. - the consent is signed and in the chart, reviewed with the patient at this time. - Plan 600 mg ibuprofen q 6 h and 1000 mg Tylenol q 8 h for post op pain control - No antibiotic prophylaxis indicated - Heparin 5000 u and SCDs ordered for thromboembolism prevention - Pyridium ordered -- Anita Cisse MD PGY3 02/05/2022 I have seen and examined the patient and reviewed and edited the resident's above history and I agree with the details as written. The assessment and plan were formulated in discussion with me and I agree with them as documented. Valerie Santos MD documented in this encounter Miscellaneous Notes * Op Note - Valerie Santos MD - 02/05/2022 12:30 PM EDT [facility] Operative Note Patient Name: Unruly Reyes : [id number] MR#: [id number] Case Date: 02/05/2022 Surgeon: Surgeon(s) and Role: * Valerie Santos MD - Primary * Anita Cisse MD - Resident Preoperative diagnosis: OVARIAN CYST Postoperative diagnosis: right ovarian cyst approximately 4 cm, possibly dermoid cyst Procedure(s) (LRB): LAPAROSCOPY, REMOVAL OF ADNEXA (WRVU 11.35) (N/A) Laparoscopic bilateral salpingo-oophorectomy Findings: - Normal appearing liver, gallbladder, and stomach - Normal appearing left fallopian tube and ovary. Normal appearing right fallopian tube. - Right ovary with approximately 4 cm ovarian cyst, possibly dermoid cyst - FROZEN: Right fallopian tube and ovary: ?- Cyst wall with keratinaceous debris, no evidence of malignancy Anesthesia: General Estimated Blood Loss: 10 mL Specimens removed during surgery: Order Name Source Comment Collection Info Order Time CYTOPATHOLOGY NON-GYNECOLOGICAL Pelvic washings OR 02/05/2022 12:30 PM Pertinent clinical data and significant therapy: OVARIAN CYST Clinical impression: Pelvic Washings Procedure Type: Other (please specify in Comments Field below) Specimen Type: Pelvic wash SPECIMEN TO PATHOLOGY RIGHT fallopian tube and ovary OR Ovarian Cyst RIGHT fallopian tube and ovary excision No 02/05/2022 12:31 PM Time specimen removed from patient: 12:31 PM Number of tissue samples (in container) 1 Biospecimen to store? No SPECIMEN TO PATHOLOGY LEFT fallopian tube and ovary OR OVARIAN CYST LEFT fallopian tube and ovary excision No 02/05/2022 12:44 PM Time specimen removed from patient: 12:43 PM Number of tissue samples (in container) 1 Biospecimen to store? No Drains: none Surgical Closure: Primary Closure - skin incision is completely closed without any wires, chantal, drains or other devices Disposition: awakened from anesthesia, extubated and taken to the recovery room in a stable condition, having suffered no apparent untoward event. Condition: doing well without problems (Please see the Surgical Encounter Summary for any Implant and Specimen details pertinent to this patient.) HPI/Surgical Indications: Unruly Reyes is a 66 y.o. female seen in clinic for concerns of a complex adnexal mass. Surgical informed consent was obtained and she was brought to the operating roomtoday for definitive surgical management. Procedure Description: Unruly Reyes was brought to the operating room where her identity was confirmed by ID badge and visual recognition. She was placed on the OR table in a dorsal lithotomy position with her arms tucked at her sides and all bony prominences padded with gel pads in a neuro physiologically neutral position. A surgical timeout was then performed with all members of the team in agreement as to the patient and the intended procedures. She was then prepped and draped in usual fashion. Wilson catheter placed into the bladder and a sponge stick into the vagina for manipulation ofthe cuff. Infra-umbilical region was instilled with 0.5% Marcaine and an incision to accomodate the12 mm trochar was made with a scalpel and the Veress needle was inserted. Low intra-abdominal pressure was achieved. The 12 mm trochar was inserted. Bilateral left and right lower quadrant ports wereplaced under direct visualization after instillation with 0.5% Marcaine. The patient was placed in steep Trendelenburg. Findings as above, including the right ovarian cyst. Pelvic washings were obtained. The right tube and ovary were elevated off of the pelvic sidewall and the course of the ureter was delineated. Taking care to avoid injury to the underlying ureter, the IP ligament was cauterizedand divided with the LigaSure and then the lateral attachments of the ovary to the pelvic sidewall were divided using LigaSure cautery. Further dissection with a LigaSure was used to remove the right fallopian tube. Vascular pedicles were noted to be dry. The right ovary and fallopian tube were then freed and placed in an Endo Catch bag. The specimen was removed with Veres needle suction of the cyst contents, and then piecemeal through the umbilicus without spillage into the abdomen. This was sent for frozen section. Attention was turned to the left ovary and fallopian tube. Taking care to avoid injury to the underlying ureter, the IP was cauterized and divided with the Ligasure and then the peritoneal attachments were also divided. Further dissection with a LigaSure was used to remove the left fallopian tube. Having freed the ovary and tube, it was placed in an endocatch bag and removed and sent for a permanent section. The pelvis was irrigated and hemostasis assured. The 12 mm trochar was removed and a 0-Vicryl suture was placed through the fascia on opposing sides of the 12 mm umbilical trocar site using a Carlos-Justice suture passer and then tied to close the fascial defect. The pneumoperitoneum was desufflated and then the ports removed. The incisions were closed with 4-0 vicryl, additional marcaine was placed and then dermabond was applied. The patient was awoken and taken to the recovery room in stablecondition. Counts were correct per nursing. Dr. Santos, attending gynecologic oncologist, was present for the entire procedure without any conflicting clinical responsibilities. Anita Cisse MD PGY3 Surgical Infection Prevention Bundle Used? N/A I, Valerie Santos MD, attest that I performed this surgery with the assistance of a resident. Iwas present and participated in the entire surgery, from start to finish, as the primary and attending surgeon of record. documented in this encounter Plan of Treatment Not on file documented as of this encounter Procedures Procedure Name Priority Date/Time Associated Diagnosis Comments SPECIMEN TO PATHOLOGY Routine 02/05/2022 12:44 PM EDT SURGICAL PATHOLOGY REPORT Routine 02/05/2022 12:32 PM EDT SPECIMEN TO PATHOLOGY Routine 02/05/2022 12:32 PM EDT NON-NURSING UNIT COORDINATOR FINAL REPORT Routine 02/05/2022 12:30 PM EDT CYTOPATHOLOGY NON-GYNECOLOGICAL Routine 02/05/2022 12:30 PM EDT Lap, Rmv Adnexal Structure ([id number]) 02/05/2022 11:42 AM EDT OVARIAN CYST POCT GLUCOSE Routine 02/05/2022 11:08 AM EDT documented in this encounter Results * Specimen to Pathology (02/05/2022 12:44 PM EDT) AP Specimen 02/05/2022 12:4 4 PM EDT 02/05/2022 12:44 PM EDT Narrative [facility] - 02/05/2022 12:44 PM EDT Specimen requisition ordered. ??Separate Pathology report to follow Valerie Santos MD PATHOLOGY/CYTOLOGY O RDERABLES [facility] [place] [address] * Surgical Pathology Report (02/05/2022 12:32 PM EDT) Final Diagnosis [id number] ? Location: [facility]; [facility]; A The signing pathologist has (i) examined the relevant preparation(s) for the specimen(s) and (ii) rendered or confirmed the diagnosis(es). . ?Surgical Pathology DIAGNOSIS A - Right fallopian tube and ovary, salpingo-oophorec dc: ??- Epidermoid cyst, ovary. ??- Benign fallopian tube. B - Left fallopian tube and ovary, salpingo-oophorec dc: ??- Benign ovary and fallopian tube without histologic abnormality. Electronically signed by: ?Prerna Miller DO Verified: ??02/08/2022 10:03 ??Pathologist Performed at: ??-[facility] Dept. of Pathology, [place], [place] SPECIMEN(S) SUBMITTED A - RIGHT fallopian tube and ovary, excision (1) ?for frozen section B - LEFT fallopian tube and ovary, excision (1) CLINICAL INFORMATION Ovarian cyst SPECIMEN PROCESSING A - Labeled/Fixative: Right fallopian tube and ovary, fresh for frozen section. Tissue Description: Fragmented, salpingo-oophorec dc. RIGHT OVARY ?? Size: 3.5 x 3.0 x 2.0 cm (aggregate). ?? Outer Surface: pink-white to lo-yellow, smooth. ?? Cut Surface: Aggregate of thin cyst wall fragments averaging 0.2 cm thick with smooth surfaces. There is abundant lo-yellow keratinaceous debris. Right Fallopian Tube: 5.2 x 0.6 cm, fimbriated. Sections/Processi ng: The following tissue is submitted for frozen section: FS 1-right ovarian cyst wall. [employer] sections in 7 cassettes as follows: ?A1: ??FS 1 frozen section remnant/right ovarian cyst wall ?A2-A4: ??Additional right ovarian cyst wall ?A5-A7: ??Right fallopian tube, entirely submitted B - Labeled/Fixative: Left fallopian tube and ovary, fresh. Tissue Description: Intact, salpingo-oophorec dc. LEFT OVARY ?? Size: 2.2 x 0.8 x 0.8 cm. ?? Outer Surface: Lo-yellow, cerebriform. ?? Cut Surface: unremarkable. Left Fallopian Tube: 5.5 x 0.5 cm, fimbriated. Sections/Processi ng: [employer] sections in 4 cassettes as follows: ?B1: ??Left ovary ?B2-B4: ??And left fallopian tube ??ajw ?Frozen Section FROZEN SECTION DIAGNOSIS AFS1 - Right fallopian tube and ovary: ? - Cyst wall with keratinaceous debris, no evidence . FROZEN SECTION DIAGNOSIS ? of malignancy. 02/05/22 13:04/jlb Electronically signed by: ?Moses ALATORRE, Miriam Navas Verified: ??02/05/2022 13:37 ??Pathologist Performed at: ??-[facility] Dept. of Pathology, [place], [place] This intraoperative consultation should be interpreted as a preliminary diagnosis pending review of the entire specimen and special studies, if any. A final Surgical Pathology report will follow this preliminary Frozen Section report(s). 02/08/2022 10:03 AM EDT [facility] OVARIAN PART / Unknown 02/05/2022 12:32 PM EDT 02/05/2022 12:32 PM EDT OVARIAN PART / Unknown 02/05/2022 12:32 PM EDT 02/05/2022 12:32 PM EDT Valerie Santos MD PATHOLOGY/CYTOLOGY O RDERABLES [facility] [place] [address] * Specimen to Pathology (02/05/2022 12:32 PM EDT) AP Specimen 02/05/2022 12:3 2 PM EDT 02/05/2022 12:32 PM EDT Narrative [facility] - 02/05/2022 12:32 PM EDT Specimen requisition ordered. ??Separate Pathology report to follow Valerie Santos MD PATHOLOGY/CYTOLOGY O NIKIA Performing Organization Address [facility] de Phone Number [facility] [place] [address] * Non-Pot Puncher Final Report (02/05/2022 12:30 PM EDT) Diagnosis Discussion [id number] ? Location: [facility]; [facility]; The signing pathologist has (i) examined the relevant preparation(s) for the specimen(s) and (ii) rendered or confirmed the diagnosis(es). . ? Non-Pot Puncher Final DIAGNOSIS Negative for Malignancy Electronically signed by: ?Katt ALATORRE PhD, Gino Monique Verified: ??02/07/2022 9:30 ?? Pathologist Performed at: ??-[facility] Dept. of Pathology, [place], [place] DISCUSSION Pelvic washing: The specimen contains mesothelial cells and leukocytes ?? . Cell block was examined. CLINICAL INFORMATION Specimen Source : Pelvic washing Pertinent Clinical Data and Significant Therapy: Ovarian cyst Clinical Impression : Pelvic washings Pertinent Radiologic Findings ??: (not provided) Gross Description: Received ??fresh, approximately 75 mL total volume of ?? clear, colorless fluid. Total Preparation: Liquid-Based Prep 1; Cell Block 1. 02/07/2022 9:30 AM EDT [facility] Pelvic Washing 02/05/2022 12 :30 PM EDT 02/05/2022 12:30 PM EDT Valerie Santos MD PATHOLOGY/CYTOLOGY O NIKIA Performing Organization Address [facility]/State/ZIP Co de Phone Number [facility] [place] [address] * Cytopathology Non-Gynecological (02/05/2022 12:30 PM EDT) AP Specimen 02/05/2022 12:3 0 PM EDT 02/05/2022 12:30 PM EDT Narrative [facility] - 02/05/2022 12:30 PM EDT Specimen requisition ordered. ??Separate Pathology report to follow Valerie Santos MD PATHOLOGY/CYTOLOGY O NIKIA [facility] [place] [address] * POCT Glucose (02/05/2022 11:08 AM EDT) Glucose, POC 83 65 - 199 mg/dL [facility] Comment: Supplemental ranges: <140 mg/dL before meals <180 mg/dL all other times of the day Blood 02/05/2022 11:0 8 AM EDT 02/05/2022 11:08 AM EDT Valerie Santos MD POINT OF CARE TEST O NIKIA Performing Organization Address [facility]/ZIP Co de Phone Number [facility] [place] [address] documented in this encounter Visit Diagnoses Diagnosis Post-operative state Other postprocedural status documented in this encounter Administered Medications Inactive Administered Medications - up to 3 most recent administrations Medication Order MAR Action Action Date Dose Rate Site heparin (porcine) (5,000 units/1 mL) subcutaneous injection 5,000 Units 5,000 Units, Subcutaneous, ONCE, 1 dose, On Fri02/05/22 at 1100, Day of Surgery (Day of Procedure), Routine Given 02/05/2022 11:00 AM EDT 5,000 Units 20-Other (document in comment section) lactated ringers infusion 1,000 mL, at 100 mL/hr, Intravenous, CONTINUOUS, Starting on Fri02/05/22 at 1100, Until Fri02/05/22 at 1503, Day of Surgery (Day of Procedure) Restarted 02/05/2022 11:43 AM EDT New Bag 02/05/2022 11:01 AM EDT 1,000 mLs 100 mL/hr phenazopyridine (Pyridium) tablet 200 mg 200 mg, Oral, ONCE, On Fri02/05/22 at 1100, 1 dose, Day of Surgery (Day of Procedure) Given 02/05/2022 11:00 AM EDT 2 00 mg documented in this encounter Active and Recently Administered Medications Times are shown in EDT. Scheduled Medication Order 02/03/2022 02/04/2022 02/05/2022 heparin (porcine) (5,000 units/1 mL) subcutaneous injection 5,000 Units (COMPLETED) 5,000 Units, Subcutaneous, ONCE, 1 dose, On Fri02/05/22 at 1100, Day of Surgery (Day of Procedure), Routine 1100 (Given - Provid er: Laura Rodriguez RN - Comment: left hip) phenazopyridine (Pyridium) tablet 200 mg (COMPLETED) 200 mg, Oral, ONCE, On Fri02/05/22 at 1100, 1 dose, Day of Surgery (Day of Procedure) 1100 (Given - Provid er: Laura Rodriguez RN) Continuous Medication Order 02/03/2022 02/04/2022 02/05/2022 lactated ringers infusion (CANCELED) 1,000 mL, at 100 mL/hr, Intravenous, CONTINUOUS, Starting on Fri02/05/22 at 1100, Until Fri02/05/22 at 1503, Day of Surgery (Day of Procedure) 1101 (New Bag - Prov ider: Laura Rodriguez RN)1142 (Paused - Provider: Coby Ramirez CRNA - Comment: Switch to gravity)1143 (Restarted - Provider: Coby Ramirez CRNA)1255 (Anesthesia Volume Adjustment - Provider: Coby Ramirez CRNA) lactated ringers infusion 1,000 mL, at 100 mL/hr, Intravenous, CONTINUOUS, Starting on Fri02/05/22 at 1345, Until Fri02/05/22 at 1705 1345 (Due) PRN Medication Order 02/03/2022 02/04/2022 02/05/2022 acetaminophen (Tylenol) tablet 650 mg 650 mg, Oral, EVERY 6 HOURS PRN, Starting on Fri02/05/22 at 1317, Until Fri02/05/22 at 1705, Pain, If multiple pain medications ordered, use acetaminophen first. Maximum dose of acetaminophen is 4000 mg from all sources in 24 hours. When ordered for pain, acetaminophen should be given even when other ordered pain medications are indicated., Routine BUpivacaine (pf) (Marcaine) (5 mg/mL) 0.5% injection (CANCELED) ONCE PRN, Starting on Fri02/05/22 at 1230, Until Fri02/05/22 at 1705, Intra-Operative (Intra-Procedure), Routine 1230 (Given - Provid er: Valerie Santos MD)1257 (Given - Provider: Valerie Santos MD) HYDROmorphone (Dilaudid) (2 mg/mL) injection solution 0.2 mg 0.2 mg, Intravenous, ONCE PRN, 1 dose, Starting on Fri02/05/22 at 1317, Until Fri02/05/22 at 1705, Pain, Severe pain (7-10), - If not controled by oral pain medication., Routine documented in this encounter Care Teams Mixing Machine Operator Relationship Specialty Start Date End Date Scot Naidu MD [address] [place] [address] PCP - General 10/14/14 documented as of this encounter
--- OUTSIDE RECORDS SUMMARY | 2023-12-26 00:22 | XMS_ITS | Encounter Summary ---
Author Organization [facility] [place] [address] Care Team Providers Care Catalyst Operator Name Role Phone Scot Naidu MD Primary Care Provider [phone] Reason for Visit * Reason Comments Skin Check Encounter Details Date Type Department Care Team (Late st Contact Info) Description 08/11/2015 2:15 PM EDT Office Visit Dermatology at [address] [address] Michael Singh MD [address] [facility], [facility] A DERMATOLOGY [place], [place] [id number] Nevus Social History Tobacco Use Types Packs/Day Years Used Date Smoking Tobacco: Never Alcohol Use Standard Drinks/Week Comments Yes 0 (1 standard drink = 0.6 oz pur e alcohol) seldom Sex and Gender Information Value Date Recorded Sex Assigned at Not on file Gender Identity Not on file Sexual Orientation Not on file documented as of this encounter Progress Notes * Michael Singh MD - 08/11/2015 2:29 PM EDT Problem: 1. Skin check. 2. History of many years living in [place]. 3. Family history of melanoma in son. Unruly is a 60-year-old woman who spent many years living in [place]. She states that her son had malignant melanoma and had to undergo a sentinel lymph node biopsy on his neck. She would like to have her own skin checked to catch any potential problems early. She would also like advice about erythema of the nasal tip. Physical examination reveals a pleasant 60-year-old woman who has a 1.5 cm pigmented patch of porokeratosis of the right upper back, which is evenly pigmented and unremarkable. She has a seborrheic keratosis on the right lower back. She has a number of macules of porokeratosis on her thighs anteriorly and laterally bilaterally. She has blue eyes and dark hair, but otherwise examination of the face, the ears, the neck, the chest, the back, the hands, arms, forearms, thighs, and calves is unremarkable. She does have diffuse violaceous discoloration of the nasal tip with telangiectatic rosacea present overlying her nose as well. Assessment and Plan: 1. Rosacea. a. Recommend vitamin C cream for telangiectasias. b. Discussed the option of dermatologic cosmetic consultation. The patient will consider this. Mentioned [facility]. 2. Benign nevi. a. Patient reassured about benign skin examination, benign nevi. b. No lesions of concern noted today. c. Recommend that I see the patient again in another year for repeat skin checkup. We will plan yearly visits for a time until I establish a benign skin examination and then may be able to go to less frequent visits. COPY: Scot Naidu M.D. documented in this encounter Plan of Treatment Not on file documented as of this encounter Visit Diagnoses Diagnosis Nevus Benign neoplasm of skin, site unspecified documented in this encounter Care Teams Catalyst Operator Relationship Specialty Start Date End Date Scot Naidu MD [address] [place] [address] PCP - General 10/14/14 documented as of this encounter
--- OUTSIDE RECORDS SUMMARY | 2023-12-26 00:22 | XMS_ITS | Encounter Summary ---
Author Organization [facility] [place] [address] Care Team Providers Care Burglar Alarm Assembler Name Role Phone Scot Naidu MD Primary Care Provider [phone] Reason for Visit * Reason Comments Medication Refill Encounter Details Date Type Department Care Team (Late st Contact Info) Description 03/26/2015 [place] [address] Vinicio Mcdermott MD [facility] [address] [place] [address] Social History Tobacco Use Types Packs/Day Years Used Date Smoking Tobacco: Never Alcohol Use Standard Drinks/Week Comments Yes 0 (1 standard drink = 0.6 oz pur e alcohol) seldom Sex and Gender Information Value Date Recorded Sex Assigned at Not on file Gender Identity Not on file Sexual Orientation Not on file documented as of this encounter Plan of Treatment Not on file documented as of this encounter Visit Diagnoses Not on filedocumented in this encounter Care Teams Burglar Alarm Assembler Relationship Specialty Start Date End Date Scot Naidu MD [address] [facility] [facility] [address] [place] [address] PCP - General 10/14/14 documented as of this encounter
--- OUTSIDE RECORDS SUMMARY | 2023-12-26 00:22 | XMS_ITS | Encounter Summary ---
Author Organization [facility] Address [address] [place] [address] Care Team Providers Care Wrapper Hands Sprayer Name Role Phone Scot Naidu MD Primary Care Provider [phone] Encounter Details Date Type Department Care Team (Late st Contact Info) Description 08/14/2020 Lab Requisition [facility] Pathology & Laboratory Medicine - [address] [address] Edgar Arzola [address] [phone] Neoplasm of unspecified behavior of bone, soft tissue, and skin Social History Tobacco Use Types Packs/Day Years Used Date Smoking Tobacco: Never Assessed Sex and Gender Information Value Date Recorded Sex Assigned at Not on file Gender Identity Not on file Sexual Orientation Not on file documented as of this encounter Plan of Treatment Not on file documented as of this encounter Procedures Procedure Name Priority Date/Time Associated Diagnosis Comments SURGICAL PATHOLOGY Today 08/14/2020 14 :35 EDT Neoplasm of unspecified behavior of bone, soft tissue, and skin documented in this encounter Results * SURGICAL PATHOLOGY (08/14/2020 14:35 EDT) Final Diagnosis A. SKIN OF CHEEK, LEFT, SHAVE BIOPSY: - Intradermal nevus. 08/15/2020 15:46 EDT [facility] Attestation By the signature below, the attending physician certifies that they have 1) personally conducted a gross and/or microscopic examination of the described specimen(s), and/or personally interpreted the results of laboratory testing of the described specimen(s), and 2) personally rendered or confirmed the above diagnosis. 08/15/2020 15:46 EDT [facility] at 1546 Clinical History Skin lesion left cheek; clinical diagnosis code: D49.2 08/15/2020 15:46 EDT [facility] Gross Description A. Received in formalin labelled with proper patient identification (initials W, R) and left cheek is an ovoid mottled hayward brown skin shave, 0.5 x 0.4 x 0.1 cm. The margin is inked. Bisected and entirely submitted in A1. OKSANA ZAFAR(ASCP) 08/15/2020 7:26 08/15/2020 15:46 EDT [facility] Performing Lab [facility] 08/15/2020 15:46 EDT [facility] Scanned Images 08/15/2020 15:46 EDT [facility] Tissue TISSUE SPECIMEN FROM SKIN / Unknown 08/14/2020 14:35 EDT 08/14/2020 22:29 EDT Edgar GANDHI PATHOLOGY ORDERABL ES Performing Organization Address City/State/[facility] Co de Phone Number [facility] [address] [place] [address] documented in this encounter Visit Diagnoses Diagnosis Neoplasm of unspecified behavior of bone, soft tissue, and skin documented in this encounter Care Teams Wrapper Hands Sprayer Relationship Specialty Start Date End Date Scot Naidu MD [address] [place] [address] [place] [address] PCP - General Family Medicine - Primary Care 07/20/20 documented as of this encounter
--- OUTSIDE RECORDS SUMMARY | 2023-12-26 00:22 | XMS_ITS | Encounter Summary ---
Author Organization [facility] [place] [address] Care Team Providers Care Household Chores Name Role Phone Scot Naidu MD Primary Care Provider [phone] Encounter Details Date Type Department Care Team (Latest Contact Info) Description 10/24/2014 9:50 AM EDT - 10/24/2014 1:12 PM EDT Hospital Encounter [place] [address] Vinicio Mcdermott MD [facility] [place] [address] Discharge Disposition: Home Social History Tobacco Use [...] Sign Reading Time Taken Comments Blood Pressure 135/74 10/24/2014 12:34 PM EDT Pulse 84 10/24/2014 12:34 PM EDT Temperature - - Respiratory Rate 18 10/24/2014 12:34 PM EDT Oxygen Saturation 98% 10/24/2014 12:34 PM EDT Inhaled Oxygen Concentration - - Weight - - Height - - Body Mass Index - - documented in this encounter Discharge Instructions * Discharge Instructions* Eli Umana RN - 10/24/2014 12:35 PM EDT Colonoscopy What to expect after the procedure You may feel a little more gassy or bloated than usual. This is normal. You should expect the return of normal bowel function in the 2 to 3 days. Activity Because of the sedation that you received your judgement and reaction time are effected ?? Go home and rest quietly for the remainder of the day. You may resume your normal activities tomorrow. ?? Change from one position to the next slowly. You may lose your balance unexpectedly ?? Be careful on stairs, as you may be unsteady on your feet FOR THE NEXT 24 HRS ?? DO NOT DRIVE OR OPERATE ANY MACHINERY ?? DO NOT DRINK ALCOHOLIC BEVERAGES ?? DO NOT SIGN LEGAL DOCUMENTS ?? If you are a smoker: DO NOT SMOKE WHILE YOU ARE ALONE Diet ?? Start by eating small portions of foods that ordinarily will not upset your stomach . Avoid gas producing foods for the next few days. ?? Be gentle with what you choose to start eating. ?? Drink plenty of fluids ( unless your doctor has told you not to). IV SITE-- slight redness, or tenderness is normal. You can use warm compresses if you become concerned. If the tenderness +/or redness increases or foul drainage and a red streak occurs, please contact your primary doctor immediately. When should you call for help? Call 911 anytime you think you may need emergency care. For example: If you pass out ( loss of consciousness) If you pass maroon or bloody stools If you have severe belly pain Call your doctor now or seek immediate medical care: If your stools are black and tarlike If your stools have streaks of blood, but you did not have a biopsy or any polyps removed If you have belly pain, or your belly is swollen and firm If you vomit If you have a fever If you are very dizzy Watch closely for changes in your health, and be sure to contact your doctor if you have any problems Your doctor will let you know when you will need your next colonoscopy. The results of your test and your risk for colorectal cancer will help your doctor decide how often you need to be checked. If you have questions or concerns, you can call us: [facility] [phone] 8a-5p Same Day Endo [phone] 7a-8p Otherwise contact [phone] and ask to speak to the label cutter installation and service technician. Follow up care is a munguia part of your treatment and safety. Be sure to make and go to all appointments, and call your doctor if you are having problems. Discharge instructions reviewed with patient who expresses understanding. * Patient Instructions* Vinicio Mcdermott MD - 10/24/2014 12:28 PM EDT Please see Recommendations in the Provation procedure report which is documented in the procedural note in [facility]. documented in this encounter Medications at Time of Discharge Medication Sig Dispensed Refills Start Date End Date zolpidem (AMBIEN) 5 mg Tablet Take 5 mg by mouth nightly as needed for Sleep. 08/11/2015 PARoxetine (PAXIL) 10 mg Tablet Take 10 mg by mouth every morning. 01/25/2022 buPROPion (WELLBUTRIN SR) 150 mg 12 hr tablet 150MG = 1 Tablet(s), PO, Twice daily 11/27/2005 08/11/2015 documented as of this encounter H&P Notes * Vinicio Mcdermott MD - 10/24/2014 11:51 AM EDT Screening colo; stable for procedure; risks explained; consent signed; clear lungs; rrr. documented in this encounter Plan of Treatment Not on file documented as of this encounter Procedures Procedure Name Priority Date/Time Associated Diagnosis Comments COLONOSCOPY, DIAGNOSTIC (WRVU 3.26) 10/24/2014 12:02 PM EDT Screening COLONOSCOPY Routine 10/24/2014 10:43 AM EDT documented in this encounter Results * COLONOSCOPY (10/24/2014 10:43 AM EDT) COLONOSCOPY [facility] Endoscopy ___ Patient Name: Unruly Reyes ? Procedure Date: 10/24/2014 10:43 AM ? Date of : 1955 ? Age: 59 ? Order #: [id number] ? ___ Procedure: ? Colonoscopy Indications: ? Screening for colorectal malignant ? neoplasm; no personal history of ? anemia; no family history of CRC; no ? prior examination. Providers: ? Vinicio Mcdermott MD, Wilner Sims RN, ? Sudha Marcos Referring MD: ?Scot Naidu MD Medicines: ? Midazolam 3 mg IV, Fentanyl 150 ? micrograms IV, Diphenhydramine 50 mg ? IV Complications: ? No immediate complications. ___ Procedure: ? The procedure, indications, benefits, ? risks and alternatives were explained ? to the patient. Specifically ? discussed were potential ? complications including, but not ? limited to, bleeding, perforation, ? infection, missing a cancer, and ? adverse medication reactions. The ? patient was placed in the left ? lateral decubitus position, and a ? digital rectal exam was performed. ? The Colonoscope was inserted in the ? anus and under direct visualization, ? advanced to the terminal ileum. ? Careful inspection was made as the ? colonoscope was withdrawn. The ? colonoscopy was performed without ? difficulty. The patient tolerated the ? procedure well. The quality of the ? bowel preparation was good. ? Findings: ? The terminal ileum appeared normal. ? The cecum appeared normal. ? A few small and large-mouthed diverticula were found ? in the entire colon. ? The rectum appeared normal. ? Impression: ?- The examined portion of the ileum ? was normal. ? - The cecum is normal. ? - Diverticulosis in the entire ? examined colon. ? - The rectum is normal. ? - No specimens collected. Recommendation: ?- Repeat colonoscopy in 10 years for ? surveillance. ? - Return to primary care physician as ? previously scheduled. ? Procedure Code(s): ?? --- Professional --- ? 97935, Colonoscopy, flexible; ? diagnostic, including collection of ? specimen(s) by brushing or washing, ? when performed (separate procedure) CPT copyright 2014 [employer]. All rights reserved. The codes documented in this report are preliminary and upon trace evidence technician review may be revised to meet current compliance requirements. Attending Participation: ? I personally performed the entire procedure. ? Vinicio Mcdermott MD 10/24/2014 12:35 PM This report has been signed electronically. Number of Addenda: 0 Note Initiated On: 10/24/2014 10:43 AM PROVATION 10/24/2014 10:4 3 AM EDT Scot Naidu MD GENERAL SURGICAL ORDERABLES PROVATION documented in this encounter Visit Diagnoses Not on filedocumented in this encounter Active and Recently Administered Medications Times are shown in EDT. PRN Medication Order 10/22/2014 10/23/2014 10/24/2014 diphenhydrAMINE (BENADRYL) injection (CANCELED) ONCE PRN, Starting on Fri10/24/14 at 1210, Until Fri10/24/14 at 1826, Intra-Operative (Intra-Procedure), Routine 1207 (Given - Provid er: Wilner Sims RN)1210 (Given - Provider: Wilner Sims RN) fentaNYL 50 mcg/mL multi-dose injection (CANCELED) ONCE PRN, Starting on Fri10/24/14 at 1207, Until Fri10/24/14 at 1826, Intra-Operative (Intra-Procedure), Routine 1207 (Given - Provid er: Wilner Sims RN)1210 (Given - Provider: Wilner Sims RN)1215 (Given - Provider: Wilner Sims, RN)1218 (Given - Provider: Wilner Sims RN) midazolam (PF) (VERSED) 1 mg/mL multi-dose injection (CANCELED) ONCE PRN, Starting on Fri10/24/14 at 1207, Until Fri10/24/14 at 1826, Intra-Operative (Intra-Procedure), Routine 1207 (Given - Provid er: Wilner Sims RN)1211 (Given - Provider: Wilner Sims, RN)1215 (Given - Provider: Wilner Sims, RN) documented in this encounter Care Teams Household Chores Relationship Specialty Start Date End Date Scot Naidu MD [address] [facility] [address] [place] [address] PCP - General 10/14/14 documented as of this encounter
--- OUTSIDE RECORDS SUMMARY | 2023-12-26 00:22 | XMS_ITS | Encounter Summary ---
Author Organization [facility] [place] [address] Care Team Providers Care Residential Advisor Name Role Phone Scot Naidu MD Primary Care Provider [phone] Encounter Details Date Type Department Care Team (Latest Contact Info) Description 08/27/2017 - 08/27/2017 11:59 PM EDT Hospital Encounter [place] [address] Washington Spaulding MD [facility] [place] [address] Discharge Disposition: Home Social History Tobacco Use Types Packs/Day Years Used Date Smoking Tobacco: Never Alcohol Use Standard Drinks/Week Comments Yes 0 (1 standard drink = 0.6 oz pur e alcohol) seldom Sex and Gender Information Value Date Recorded Sex Assigned at Not on file Gender Identity Not on file Sexual Orientation Not on file documented as of this encounter Medications at Time of Discharge Medication Sig Dispensed Refills Start Date End Date PARoxetine (PAXIL) 10 mg Tablet Take 10 mg by mouth every morning. 01/25/2022 documented as of this encounter Plan of Treatment Not on file documented as of this encounter Procedures Procedure Name Priority Date/Time Associated Diagnosis Comments FILM LIBRARY STORAGE ONLY DX ANKLE Routine 08/27/2017 12:00 AM EDT documented in this encounter Results * Film Library- Storage Only DX Ankle (08/27/2017 12:00 AM EDT) Narrative RAD - 09/09/2017 12:35 AM EDT This exam is for storage only and is auto-finalizing. Washington Spaulding MD IMG FILM LIBRARY ORD ERABLES [place], [place] documented in this encounter Visit Diagnoses Not on filedocumented in this encounter Care Teams Residential Advisor Relationship Specialty Start Date End Date Scot Naidu MD [address] [place] [address] PCP - General 10/14/14 documented as of this encounter
--- OUTSIDE RECORDS SUMMARY | 2023-12-26 00:22 | XMS_ITS | Encounter Summary ---
Author Organization [facility] [place] [address] Care Team Providers Care Bond Runner Name Role Phone Scot Naidu MD Primary Care Provider [phone] [phone] Reason for Visit * Reason Comments Establish Care * Consultation (Routine) - Closed Specialty Diagnoses / Procedures Referred By Bin dela cruz Referred To Contact Gynecology Oncology Diagnoses Other ovarian cyst, right side Amita Bone MD [address] [place] [address] [place] [address] [facility] Market Consultant [address] [place] [id number] Referral ID Status Reason Start Date Expiration Date V isits Requested Visits Authorized [id number] Closed Consult, Test & Treat PCP Updated and/or Approved 01/14/2022 01/14/2023 6 6 Encounter Details Date Type Department Care Team (Late st Contact Info) Description 01/25/2022 11:00 AM EDT Office Visit [place] [address] Taurus Garcia MD [facility] [place] [address] Pelvic mass in female Social History Tobacco Use Types Packs/Day Years [...] Sign Reading Time Taken Comments Blood Pressure 142/88 01/25/2022 10:46 AM EDT Pulse 93 01/25/2022 10:46 AM EDT Temperature 37.1 ??C (98.8 ??F) 01/25/2022 10:46 AM E DT Respiratory Rate 12 01/25/2022 10:46 AM EDT Oxygen Saturation 99% 01/25/2022 10:46 AM EDT Inhaled Oxygen Concentration - - Weight 56.1 kg (123 lb 9.6 oz) 01/25/2022 10:46 AM EDT Height 165 cm (5' 4.96) 01/25/2022 10:46 AM EDT Body Mass Index 20.59 01/25/2022 10:46 AM EDT documented in this encounter Progress Notes * Taurus Garcia MD - 01/25/2022 11:00 AM EDT Images from the original note were not included. Division of Gynecologic Oncology Debby Castillo MD [facility] Taurus Garcia MD [facility] [place] [address] MD Inés Mills, [facility] New Outpatient Visit: Reason for visit: Unruly Reyes is being seen in the clinic today at the request of Dr. Amita Bone MD [address] [place] [address] [place] [address] for the evaluation of pelvic mass. I have reviewed the available records, interviewed and examined the patient. History of Present Illness: Unruyl Reyes is a 66 y.o. female referred for evaluation of a pelvic mass. The patient notes that she was sick in October and went to the ER for what she thought was a diverticular issue, but instead had a cyst on her ovary and pneumonia on her CT scan. She then had an US as below: Medical History: Depression Anxiety Diverticulitis flares in the past treated with antibiotics, last was a long time ago and it is now much improved with diet changes Complex regional pain syndrome after a right hand surgery, this is now better aside from occasionalflare ups, also had with ankle surgery Surgical History: Past Surgical History: Procedure Laterality Date ??? PRO COLONOSCOPY, DIAGNOSTIC N/A 10/24/2014 COLONOSCOPY, DIAGNOSTIC performed by Vinicio Mcdermott MD at [facility] ENDOSCOPY laparoscopy for right ovarian endometriosis with surgery for fibroids at the same time in her 41 Hysteroscopy H/o right had surgery Right ankle surgery with ORIF Medications: Current Outpatient Medications Medication Sig Dispense Refill ??? LORazepam (Ativan) 0.5 mg Tablet TAKE ONE TABLET BY MOUTH AT BEDTIME NEEDED FOR ANXIETY ??? escitalopram (Lexapro) 10 mg Tablet Take 5 mg by mouth daily. PT cuts in half takes 5mg once daily ??? PARoxetine (PAXIL) 10 mg Tablet Take 10 mg by mouth every morning. No current facility-administered medications for this visit. Allergies: Allergies Allergen Reactions ??? Prednisone Gynecologic History/Health Maintenance: Menopause at age 41. Currently using an estrogen cream for vaginal atrophy. Denies postmenopausal bleeding/spotting. Has had regular Pap smear screening and they have been wnl. Mammograms are up to date and are wnl per the patient. Last colonoscopy = up to date and are wnl per the patient. Family History: colon cancer in her paternal grandmother Denies breast, ovarian, or uterine cancer. Social History: reports that she has never smoked. She has never used smokeless tobacco. She reports current alcohol use. She reports that she does not use drugs. She is . She lives with her . She is not currently working. Physical Exam: Vitals: 01/25/22 1046 BP: 142/88 Patient Position: Sitting Pulse: 93 Resp: 12 Temp: 37.1 ??C (98.8 ??F) TempSrc: Tympanic SpO2: 99% Weight: 56.1 kg (123 lb 9.6 oz) Height: 165 cm (5' 4.96) Body mass index is 20.59 kg/m??. Body surface area is 1.6 meters squared. Physical Exam Constitutional: General: She is not in acute distress. Appearance: Normal appearance. She is well-developed. She is not ill-appearing. Comments: Here with her . Anxious and appropriately tearful at times. Eyes: General: No scleral icterus. Right eye: No discharge. Left eye: No discharge. Cardiovascular: Rate and Rhythm: Normal rate and regular rhythm. Heart sounds: Normal heart sounds. No murmur heard. No friction rub. No gallop. Pulmonary: Effort: Pulmonary effort is normal. No respiratory distress. Breath sounds: Normal breath sounds. No wheezing. Chest: Breasts: Right: No supraclavicular adenopathy. Left: No supraclavicular adenopathy. Abdominal: General: Abdomen is flat. There is no distension. Palpations: Abdomen is soft. There is no mass. Tenderness: There is abdominal tenderness (mild RLQ, no rebound). There is no rebound. Musculoskeletal: General: No tenderness. Cervical back: Neck supple. Lymphadenopathy: Cervical: No cervical adenopathy. Upper Body: Right upper body: No supraclavicular adenopathy. Left upper body: No supraclavicular adenopathy. Skin: General: Skin is warm and dry. Coloration: Skin is not pale. Findings: No erythema or rash. Neurological: Mental Status: She is alert. Coordination: Coordination normal. Psychiatric: Behavior: Behavior normal. GOG Performance Status: 0 Impression/Plan: Unruly Reyes is a 66 y.o. female seen for evaluation of a possibly symptomatic ovarian cyst which is complex on ultrasound imaging. The cyst is documented on the ultrasound is being on the left and one portion of the report and on the right in another portion with the patient's symptoms are onthe right and prior notes document a finding on the right. Unfortunately, images were not availablefor review today to definitively determine the side. Nonetheless, upon review of these findings with Unruly Reyes and her family, I explained that this finding warrants removal given the symptomatic and complex nature of the mass. I further explained that a definitive diagnosis can only be made at the time of surgery and that this likely represents a benign or borderline process or much lesslikely, a malignancy. Given these findings, the decision was made to proceed with laparoscopic bilateral salpingo-oophorectomy with possible staging. During the course of obtaining informed consent, I explained that the goal of surgery is twofold. First, it would allow us to remove the mass and obtain a frozen section for diagnosis and second it would allow for surgical staging if in fact this is a cancer. I also reviewed the many possible benign masses that this might represent. The risks of bleeding, infection, damage to surrounding organs, including but not limited to, the bowel, bladder, ureters and blood vessels, and DVT/PE were also reviewed with the patient and her family. At the conclusion of our visit all of her questions were answered and she verbalized understanding of the nature of her condition and the plan of care that was outlined. Surgical date: February 05 Procedure: Laparoscopic BSO, possible staging discharge: Same day Surgical site infection bundle: Not applicable Preop antibiotics: Not applicable VTE prophylaxis: SCDs, heparin 5000 units OCTOR Thank you for referring this ana patient to [facility] for her care. I will keep you apprised of her progress. TAURUS GARCIA MD documented in this encounter Plan of Treatment Not on file documented as of this encounter Visit Diagnoses Diagnosis Pelvic mass in female Abdominal or pelvic swelling, mass or lump, unspecified site documented in this encounter Care Teams Bond Runner Relationship Specialty Start Date End Date Scot Naidu MD [address] [place] [address] PCP - General 10/14/14 documented as of this encounter
--- OUTSIDE RECORDS SUMMARY | 2023-12-26 00:22 | XMS_ITS | Encounter Summary ---
[place] [address] Care Team Providers Care Director Insurance Name Role Phone Scot Naidu MD Primary Care Provider [phone] Reason for Referral * Consultation (Routine) - Closed Specialty Diagnoses / Procedures Referred By Bin t Referred To Contact Gynecology Oncology Diagnoses Other ovarian cyst, right side Amita Bone MD [address] [place] [address] [place] [address] [facility] Oil Spot Washer [address] [place] [phone] Referral ID Status Reason Start Date Expiration Date V isits Requested Visits Authorized [id number] Closed Consult, Test & Treat PCP Updated and/or Approved 01/14/2022 01/14/2023 6 6 Encounter Details Date Type Department Care Team (Late st Contact Info) Description 01/14/2022 Transcribe Orders eDH Incoming Referrals [phone] Amita Bone MD [address] [place] [address] [address] [place], [place] [id number] Other ovarian cyst, right side Social History Tobacco Use Types Packs/Day Years Used Date Smoking Tobacco: Never Alcohol Use Standard Drinks/Week Comments Yes 0 (1 standard drink = 0.6 oz pur e alcohol) seldom Sex and Gender Information Value Date Recorded Sex Assigned at Not on file Gender Identity Not on file Sexual Orientation Not on file documented as of this encounter Plan of Treatment Scheduled Referrals Name Type Priority Associated Diagnoses Order Schedule Referral to Gynecologic Oncology Outpatient Referral Routine Other ovarian cyst, right side Ordered: 01/14/2022 documented as of this encounter Visit Diagnoses Diagnosis Other ovarian cyst, right side documented in this encounter Care Teams Director Insurance Relationship Specialty Start Date End Date Scot Naidu MD [address] [place] [address] [address] PCP - General 10/14/14 documented as of this encounter
--- OUTSIDE RECORDS SUMMARY | 2023-12-26 00:22 | XMS_ITS | Encounter Summary ---
Author Organization [facility] [place] [address] Care Team Providers Care Neurology Specialist Name Role Phone Scot Naidu MD Primary Care Provider [phone] Encounter Details Date Type Department Care Team (Late st Contact Info) Description 10/24/2014 11:00 AM EDT - 10/24/2014 12:00 PM EDT Surgery [place] [address] Vinicio Mcdermott MD [facility] DR GASTROENTEROLOGY [place] [address] COLONOSCOPY, DIAGNOSTIC (WRVU 3.26) Social History Tobacco Use Types Packs/Day Years [...] concerns, you can call us: Friday[facility]Friday [facility] [phone] 8a-5p Same Day Endo [phone] 7a-8p Otherwise contact [phone] and ask to speak to the vacuum cleaner repair person apron trimmer. Follow up care is a munguia part [...] * COLONOSCOPY (10/24/2014 10:43 AM EDT) COLONOSCOPY [facility] Endoscopy ___ Patient Name: Unruly Reyes ? Procedure Date: 10/24/2014 10:43 AM ? Date of : 1955 ? Age: 59 ? Order #: [id number] ? ___ Procedure: ? Colonoscopy Indications: ? [...] Procedure Code(s): ?? --- Professional --- ? 59173, Colonoscopy, flexible; ? diagnostic, including collection of ? specimen(s) by brushing or washing, ? when performed (separate procedure) CPT copyright 2014 [employer]. All rights reserved. The codes documented in this report are preliminary and upon remote medical coder review may be revised to meet current [...] Diagnoses Not on filedocumented in this encounter Administered Medications Inactive Administered Medications - up to 3 most recent administrations Medication Order MAR Action Action Date Dose Rate Site diphenhydrAMINE (BENADRYL) injection ONCE PRN, Starting on Fri10/24/14 at 1210, Until Fri10/24/14 at 1826, Intra-Operative (Intra-Procedure), Routine Given 10/24/2014 12:10 PM EDT 25 mg Given 10/24/2014 12:07 PM EDT 25 mg fentaNYL 50 mcg/mL multi-dose injection ONCE PRN, Starting on Fri10/24/14 at 1207, Until Fri10/24/14 at 1826, Intra-Operative (Intra-Procedure), Routine Given 10/24/2014 12:18 PM EDT 25 mcg Given 10/24/2014 12:15 PM EDT 25 mcg Given 10/24/2014 12:10 PM EDT 50 mcg midazolam (PF) (VERSED) 1 mg/mL multi-dose injection ONCE PRN, Starting on Fri10/24/14 at 1207, Until Fri10/24/14 at 1826, Intra-Operative (Intra-Procedure), Routine Given 10/24/2014 12:15 PM EDT 1 mg Given 10/24/2014 12:11 PM EDT 1 mg Given 10/24/2014 12:07 PM EDT 1 mg documented in this encounter Active and [...] Wilner Sims RN)1215 (Given - Provider: Wilner Sims RN)1218 (Given - Provider: Wilner Sims RN) midazolam (PF) (VERSED) 1 mg/mL multi-dose injection (CANCELED) ONCE PRN, Starting on Fri10/24/14 at 1207, Until Fri10/24/14 at 1826, Intra-Operative (Intra-Procedure), Routine 1207 (Given - Provid er: Wilner Sims RN)1211 (Given - Provider: Wilner Sims RN)1215 (Given - Provider: Wilner Sims RN) documented in this encounter Care Teams Neurology Specialist Relationship Specialty Start Date End Date Scot Naidu MD [address] [place] [address] PCP - General 10/14/14 documented as of this encounter
--- OUTSIDE RECORDS SUMMARY | 2023-12-26 00:22 | XMS_ITS | Clinical Summary ---
Author Organization [facility] Address [address] [place] [address] Care Team Providers Care Electroplating Sales Representative Name Role Phone Scot Naidu MD Primary Care Provider [phone] [phone] Social History Tobacco Use Types Packs/Day Years Used Date Smoking Tobacco: Never Assessed Sex and Gender Information Value Date Recorded Sex Assigned at Not on file Gender Identity Not on file Sexual Orientation Not on file Plan of Treatment Health Maintenance Due Date Last Done Comments Hepatitis C Screen 1955 RSV Immunization ( o r 60+ Years) (1 - 1-dose 60+ series) 2016 Fall Risk Screening 2021 COVID-19 Vaccine ( season) 2022 Care Teams Electroplating Sales Representative Relationship Specialty Start Date End Date Scot Naidu MD [address] [place] [address] PCP - General Family Medicine - Primary Care 07/20/20
--- OUTSIDE RECORDS SUMMARY | 2023-12-26 00:22 | XMS_ITS | Encounter Summary ---
Author Organization [facility] Address [facility] [address] Care Team Providers Care Handle Bar Assembler Name Role Phone Scot Naidu MD Primary Care Provider [phone] [phone] Encounter Details Date Type Department Care Team (Late st Contact Info) Description 02/05/2022 11:43 AM EDT Anesthesia Event [place] [address] Adan Higgins MD [facility] [place] [address] Anesthesia Record Procedure Summary Procedure Name Responsible Anesthesiologist Anesthesia Start Time Anesthesia Stop Time LAPAROSCOPY, REMOVAL OF ADNEXA (WRVU 11.35) (Pelvis) Adan Higgins MD 02/05/22 1143 02/05/22 1324 Events Date Time Event Comment 02/05/2022 1042 1143 AN Verify 1143 Start 1143 An Start Data 1154 An Induction 1156 An Intubation 1202 Anesthesia Ready 1219 Procedure Start 1315 Extubation/LMA Out 1317 an stop data 1318 Recovery or ICU Handoff Jennifer ent care was transferred to the destination unit staff after review of the patient's medical history, current anesthetic/surgical status and plan, according to the Provider Handoff Checklist. 1324 Stop Meds Name Total Midazolam 2 mg fentaNYL 100 mcg Propofol 150 mg Rocuronium 50 mg Ondansetron 8 mg Dexmedetomidine 12 mcg Propofol INF 286.96 mg ketorolac (Toradol) (30 mg/mL) injection 30 mg Sugammadex 200 mg lactated ringers infusion 600 mL * Agents Name O2 Air N2O Sevoflurane (et) * Blood No blood administrations on file. Lines, Drains, and Airways Type Details Placement Removal Incision 02/05/22; 1232; medi al; abdomen; laparoscopic punctures (specify) (trocar sites x3) 02/05/22 1232 by Mckenzie Huerta, RN (RETIRED) Peripheral IV Line - Single Lumen 02/05/22; 1100; cephalic vein (lateral side of arm), left; [id number] catheter system; Anatomical Landmarks; 20 gauge; distraction, intradermal injection; 02/05/22; 1504 02/05/22 1100 by Laura Rodriguez RN 02/05/22 1504 by Darian Ballard RN ETT Mask Ventilation: Ea esperanza (1); ETT Type: Cuffed, Oral; ETT Size: 7 mm; Mac Blade: 3; Exchange: Bougie; Notes: Asleep, Pre-O2, Cricoid Pressure, Stylette; Attempts: 2; Laryngoscopy Grade: 3; ETT Placement Verified By: Auscultation, Capnometry, Visual; Secured at Teeth: 21 cm; Inserted by: st. log[facility]; Removal Date: 02/05/22; Removal Time: 13102/05/22 1201 by Coby Ramirez, SPRAY UNIT FEEDER 02/05/22 1315 by Coby Ramirez, SPRAY UNIT FEEDER Urethral Catheter 02/05/22; 1229; indwelling single lumen catheter; silicone coated, latex; 14; inserted at this facility; 1; 5; 10; none; drainage bag to dependent drainage; 02/05/22; 1310 02/05/22 1229 by Mckenzie Huerta RN 02/05/22 1310 by Mckenzie Huerta RN documented in this encounter Social History Tobacco Use Types Packs/Day Years Used Date Smoking Tobacco: Never Smokeless Tobacco: Never Alcohol Use Standard Drinks/Week Comments Yes 0 (1 standard drink = 0.6 oz pur e alcohol) seldom Sex and Gender Information Value Date Recorded Sex Assigned at Not on file Gender Identity Not on file Sexual Orientation Not on file documented as of this encounter OR Notes * Anesthesia Postprocedure Evaluation - Adan Higgins MD - 02/05/2022 1:29 PM EDT Department of Anesthesiology Post-procedure Note Patient: Unruly Reyes Procedure Summary Date: 02/05/22 Room / Location: [facility] MAIN OR Anesthesia Start: 1143 Anesthesia Stop: 1324 Procedure: LAPAROSCOPY, REMOVAL OF ADNEXA (WRVU 11.35) (N/A Pelvis) Diagnosis: (OVARIAN CYST) Surgeons: Valerie Santos MD Responsible Provider: Adan Higgins MD Anesthesia Type: general ASA Status: 2 All Anesthesia Providers: Anesthesiologist: Adan Higgins MD SPRAY UNIT FEEDER: Coby Ramirez CRNA Vitals Value Taken Time BP 145/88 02/05/22 1321 Temp Pulse Resp SpO2 94 % 02/05/22 1328 Pain Level Vitals shown include unvalidated device data. Patient Location: PACU/[facility] Level of Consciousness: Awake and Alert Pain Management: Satisfactory Analgesia PONV: None Cardiovascular Status: At Baseline and Hemodynamically Stable Respiratory Status: Stable Respiratory Status and Supplemental O2 (NC or FM) Postoperative Fluid Status: Intravascular EUvolemia Possible Anesthetic Complications: NONE apparent at time of evaluation Final Primary Anesthesia Type: General (The anesthetic type performed was the same as planned.) Comments: Doing well post-op. Anticipate quick wean of O2. ADAN HIGGINS MD * Anesthesia Preprocedure Evaluation - Adan Higgins MD - 02/04/2022 1:45 PM EDT Pre-Anesthesia Evaluation for: Unruly Reyes a 66 y.o. female. Procedure(s): LAPAROSCOPY, REMOVAL OF ADNEXA (WRVU 11.35) Patient Active Problem List Diagnosis Date Noted ??? Nevus 08/11/2015 No past medical history on file. Past Surgical History: Procedure Laterality Date ??? PRO COLONOSCOPY, DIAGNOSTIC N/A 10/24/2014 COLONOSCOPY, DIAGNOSTIC performed by Vinicio Mcdermott MD at [facility] ENDOSCOPY Social History Tobacco Use ??? Smoking status: Never Smoker ??? Smokeless tobacco: Never Used Substance Use Topics ??? Alcohol use: Yes Comment: seldom Social History Substance and Sexual Activity Drug Use No Allergies Allergen Reactions ??? Prednisone Medications: MAR and/or home medications have been reviewed. Physical Exam: Preprocedure Vitals Current as of 02/04/22 1345 No BP, pulse, respiration, SpO2, or temperature recorded. Height: Weight: BMI: IBW: Airway Assessment: Mallampati: I TM distance: >3 FB Neck ROM: full Cardiovascular Assessment: Rhythm: regular Rate: normal Pulmonary Assessment: breath sounds clear to auscultation Dental Assessment: - normal exam Misc Assessment: IV access: Peripheral line Last Filed Perioperative Cognitive Screening None Anesthesia Plan: ASA 2 general, with a(n) intravenous induction 66 yo F with an ovarian cyst for laparoscopic removal. 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 Plan: GETA, PONV ppx Risks, benefits, and alternatives discussed with patient including but not limited to dental, airway, lip injury, vascular injury, nerve injury, thrombosis, eye injury, blindness, adverse drug reactions, heart attack, stroke, intraoperative demise among others. All questions answered to patients sat isfaction. Region - Other Informed Consent: Anesthetic plan and risks discussed with patient. Use of blood products discussed with patient who consented to blood products. Plan discussed with SPRAY UNIT FEEDER. Anesthesia Screening documented in this encounter Plan of Treatment Not on file documented as of this encounter Visit Diagnoses Not on filedocumented in this encounter Administered Medications Inactive Administered Medications - up to 3 most recent administrations Medication Order MAR Action Action Date Dose Rate Site dexmedeTOMIDine (Precedex) (4 mcg/mL) bolus injection (Anesthsia) Intravenous, PRN, Starting on Fri02/05/22 at 1222, Until Fri02/05/22 at 1328, Anesthesia Intra-op, Routine Given 02/05/2022 12:22 PM EDT 12 mcg fentaNYL (pf) (50 mcg/mL) multi-dose injection Intravenous, PRN, Starting on Fri02/05/22 at 1154, Until Fri02/05/22 at 1328, Anesthesia Intra-op, Routine Given 02/05/2022 12:18 PM EDT 50 mcg Given 02/05/2022 11:54 AM EDT 50 mcg ketorolac (Toradol) (30 mg/mL) injection Intravenous, PRN, Starting on Fri02/05/22 at 1307, Until Fri02/05/22 at 1328, Anesthesia Intra-op, Routine Given 02/05/2022 1:07 PM EDT 30 mg lactated ringers infusion 1,000 mL, at 100 mL/hr, Intravenous, CONTINUOUS, Starting on Fri02/05/22 at 1100, Until Fri02/05/22 at 1503, Day of Surgery (Day of Procedure) Restarted 02/05/2022 11:43 AM EDT New Bag 02/05/2022 11:01 AM EDT 1,000 mLs 100 mL/hr midazolam (pf) (Versed) (1 mg/mL) multi-dose injection Intravenous, PRN, Starting on Fri02/05/22 at 1145, Until Fri02/05/22 at 1328, Anesthesia Intra-op, Routine Given 02/05/2022 11:45 AM EDT 2 mg ondansetron (pf) (Zofran) (2 mg/mL) injection Intravenous, PRN, Starting on Fri02/05/22 at 1307, Until Fri02/05/22 at 1328, Anesthesia Intra-op, Routine Given 02/05/2022 1:07 PM EDT 8 mg propofoL (Diprivan) (10 mg/mL) infusion Intravenous, CONTINUOUS PRN, Starting on Fri02/05/22 at 1200, Until Fri02/05/22 at 1328, Anesthesia Intra-op, Routine Rate/Dose Change 02/05/2022 12:54 PM EDT 30 mcg/kg/min 10.188 mL/hr Rate/Dose Change 02/05/2022 12:45 PM EDT 50 mcg/kg/min 16. 98 mL/hr New Bag 02/05/2022 12:00 PM EDT 100 mcg/kg/min 33.96 mL /hr propofoL (Diprivan) 10 mg/mL bolus injection (Anesthesia) Intravenous, PRN, Starting on Fri02/05/22 at 1154, Until Fri02/05/22 at 1328, Anesthesia Intra-op Given 02/05/2022 11:54 AM EDT 150 mg rocuronium (Zemuron) (10 mg/mL) multi-dose injection Intravenous, PRN, Starting on Fri02/05/22 at 1154, Until Fri02/05/22 at 1328, Anesthesia Intra-op, Routine Given 02/05/2022 11:54 AM EDT 50 mg sugammadex (Bridion) 100 mg/mL injection Intravenous, PRN, Starting on Fri02/05/22 at 1307, Until Fri02/05/22 at 1328, Anesthesia Intra-op, Routine Given 02/05/2022 1:07 PM EDT 200 mg documented in this encounter Care Teams Handle Bar Assembler Relationship Specialty Start Date End Date Scot Naidu MD [address] [place] [address] PCP - General 10/14/14 documented as of this encounter
--- OUTSIDE RECORDS SUMMARY | 2023-12-26 00:22 | XMS_ITS | Encounter Summary ---
Author Organization [facility] [place] [address] Care Team Providers Care Asset Recovery Specialist Name Role Phone Scot Naidu MD Primary Care Provider [phone] Encounter Details Date Type Department Care Team (Late st Contact Info) Description 02/05/2022 11:15 AM EDT - 02/05/2022 1:52 PM EDT [place] [address] Valerie Santos MD [facility] [address] [place] [address] LAPAROSCOPY, REMOVAL OF ADNEXA (WRVU 11.35) Social History Tobacco Use Types Packs/Day Years [...] Sign Reading Time Taken Comments Blood Pressure 124/72 02/05/2022 1:45 PM EDT Pulse 62 02/05/2022 10:43 AM EDT Temperature 36.3 ??C (97.3 ??F) 02/05/2022 1:18 PM ED T Respiratory Rate 16 02/05/2022 1:30 PM EDT Oxygen Saturation 100% 02/05/2022 1:45 PM EDT Inhaled Oxygen Concentration - - Weight 56.6 kg (124 lb 11.2 oz) 022 10:43 AM EDT Height - - Body Mass Index 20.78 01/25/2022 10:46 AM EDT documented in this encounter Discharge Instructions * Patient Instructions* Anita Cisse MD - 02/05/2022 9:21 AM EDT PATIENT DISCHARGE INSTRUCTIONS Gynecologic Oncology phone number: [phone] (Nurse ext 4 then 4; appointment ext 1 then 4). After hours and on weekends please call hospital salvage machine operator at [phone] and ask for Gynecologic Oncologist sand conditioner machine. Call your doctor if you develop: --A fever over 101 degrees --Severe pain --Increasing pain, redness, or discharge at any of your incisions --Heavy vaginal bleeding-soaking through a pad an hour -Follow-up with be with Dr. Santos 03/07 at 9:40 AM via telehealth. Please log in 15 minutes ahead. Future Appointments Date Time Provider Department Center 03/07/2022 9:40 AM Valerie Santos MD [facility] [place]VISOR [facility] DEPARTMENT 3K [facility] [place] [place] Activity level: No restrictions. Activity as tolerated [...] Santos MD - 02/05/2022 12:30 PM EDT [facility] [place] Note Patient Name: Unruly Reyes : [id number] MR#: [id number] Case Date: 02/05/2022 Surgeon: Surgeon(s) and Role: [...] TO PATHOLOGY Routine 02/05/2022 12:32 PM EDT NON-SUPERVISOR [facility]CELAIN DEPARTMENT FINAL REPORT Routine 02/05/2022 12:30 PM EDT CYTOPATHOLOGY NON-GYNECOLOGICAL Routine 02/05/2022 12:30 PM EDT Lap, Rmv Adnexal Structure ([id number]) 02/05/2022 11:42 AM EDT OVARIAN CYST POCT GLUCOSE Routine 02/05/2022 11:08 AM EDT documented in this encounter Results * Specimen to Pathology (02/05/2022 12:44 PM EDT) AP Specimen 02/05/2022 12:4 4 PM EDT 02/05/2022 12:44 PM EDT Narrative [facility] - 02/05/2022 12:44 PM EDT Specimen requisition ordered. ??Separate Pathology report to follow Valerie Santos MD PATHOLOGY/CYTOLOGY O RDERABLES [facility] [place] [address] * Surgical Pathology Report (02/05/2022 12:32 PM EDT) Final Diagnosis [id number] ? [facility]; A The signing pathologist has (i) [...] DO Verified: ??02/08/2022 10:03 ??Pathologist Performed at: ??-[facility] [place], [place], [place] SPECIMEN(S) SUBMITTED A - RIGHT fallopian [...] frozen section: FS 1-right ovarian cyst wall. Fire Apparatus Sprinkler Inspector sections in 7 cassettes as follows: ?A1: [...] 5.5 x 0.5 cm, fimbriated. Sections/Processi ng: Fire Apparatus Sprinkler Inspector sections in 4 cassettes as follows: ?B1: ??Left ovary ?B2-B4: ??And left fallopian tube ??ajw ?Frozen Section FROZEN SECTION DIAGNOSIS AFS1 - Right fallopian tube and ovary: ? - Cyst wall with keratinaceous debris, no evidence . FROZEN SECTION DIAGNOSIS ? of malignancy. 02/05/22 13:04/juventino Electronically signed by: ?Miriam Lopes MD Verified: ??02/05/2022 13:37 ??Pathologist Performed at: ??-[facility] [place]. [place], [place], [place] This intraoperative consultation should be interpreted as a preliminary diagnosis pending review of the entire specimen and special studies, if any. A final Surgical Pathology report will follow this preliminary Frozen Section report(s). 02/08/2022 10:03 AM EDT [facility] OVARIAN PART / Unknown 02/05/2022 12:32 PM EDT 02/05/2022 12:32 PM EDT OVARIAN PART / Unknown 02/05/2022 12:32 PM EDT 02/05/2022 12:32 PM EDT Valerie Santos MD PATHOLOGY/CYTOLOGY O RDERABLES [facility] [place] [address] * Specimen to Pathology (02/05/2022 12:32 PM EDT) AP Specimen 02/05/2022 12:3 2 PM EDT 02/05/2022 12:32 PM EDT Narrative [facility] - 02/05/2022 12:32 PM EDT Specimen requisition ordered. ??Separate Pathology report to follow Valerie Santos MD PATHOLOGY/CYTOLOGY O NIKIA Performing Organization Address [facility] Co de Phone Number [facility] [place] [address] * Non-Manager Cardiac Cath Final Report (02/05/2022 12:30 PM EDT) Diagnosis Discussion [id number] ? Location: [facility]; The signing pathologist has (i) examined the relevant preparation(s) for the specimen(s) and (ii) rendered or confirmed the diagnosis(es). . ? Non-Manager Cardiac Cath Final DIAGNOSIS Negative for Malignancy Electronically signed by: ?Katt ALATORRE PhD, Gino Monique Verified: ??02/07/2022 9:30 ?? Pathologist Performed at: ??-[facility] [place] [place], [place], [place] DISCUSSION Pelvic washing: The specimen contains [...] Cell Block 1. 02/07/2022 9:30 AM EDT [facility] Pelvic Washing 02/05/2022 12 :30 PM EDT 02/05/2022 12:30 PM EDT Valerie Santos MD PATHOLOGY/CYTOLOGY O RDERABLES Performing Organization Address City/[facility]/ZIP Co de Phone Number [facility] [place] [address] * Cytopathology Non-Gynecological (02/05/2022 12:30 PM EDT) AP Specimen 02/05/2022 12:3 0 PM EDT 02/05/2022 12:30 PM EDT Narrative [facility] - 02/05/2022 12:30 PM EDT Specimen requisition ordered. ??Separate Pathology report to follow Valerie Santos MD PATHOLOGY/CYTOLOGY O RDMOE Performing Organization Address [facility]/ZIP Co de Phone Number [facility] [place] [address] * POCT Glucose (02/05/2022 11:08 AM EDT) Glucose, POC 83 65 - 199 mg/dL [facility] Comment: Supplemental ranges: <140 mg/dL before meals <180 mg/dL all other times of the day Blood 02/05/2022 11:0 8 AM EDT 02/05/2022 11:08 AM EDT Valerie Santos MD POINT OF CARE TEST O RDERABLES Performing Organization Address [facility] Co de Phone Number [facility] [place] [address] documented in this encounter Visit Diagnoses Not on filedocumented in this encounter Administered Medications Inactive Administered Medications - up to 3 most recent administrations Medication Order MAR Action Action Date Dose Rate Site BUpivacaine (pf) (Marcaine) (5 mg/mL) 0.5% injection ONCE PRN, Starting on 02/05/22 at 1230, Until Fri02/05/22 at 1705, Intra-Operative (Intra-Procedure), Routine Given 02/05/2022 12:57 PM EDT 10 mLs 19- Surgical Site Given 02/05/2022 12:30 PM EDT 11 mLs 1 9- Surgical Site heparin (porcine) (5,000 units/1 mL) subcutaneous injection 5,000 Units 5,000 Units, Subcutaneous, ONCE, 1 dose, On 02/05/22 at 1100, Day of Surgery (Day of Procedure), Routine Given 02/05/2022 11:00 AM EDT 5,000 Units 20-Other (document in comment section) lactated ringers infusion 1,000 mL, at 100 mL/hr, Intravenous, CONTINUOUS, Starting on e 02/05/22 at 1100, Until 02/05/22 at 1503, Day of Surgery (Day of [...] 5,000 Units, Subcutaneous, ONCE, 1 dose, On e 02/05/22 at 1100, Day of Surgery (Day of Procedure), Routine 1100 (Given - Provid er: Laura Rodriguez RN - Comment: left hip) phenazopyridine (Pyridium) tablet 200 mg (COMPLETED) 200 mg, Oral, ONCE, On e 02/05/22 at 1100, 1 dose, Day of Surgery (Day of Procedure) 1100 (Given - Provid er: Laura Rodriguez RN) Continuous Medication Order 02/03/2022 02/04/2022 02/05/2022 lactated ringers infusion (CANCELED) 1,000 mL, at 100 mL/hr, Intravenous, CONTINUOUS, Starting on Fri02/05/22 at 1100, Until 02/05/22 at 1503, Day of Surgery (Day of [...] Routine documented in this encounter Care Teams Asset Recovery Specialist Relationship Specialty Start Date End Date Scot Nadiu MD [address] [place] [address] PCP - General 10/14/14 documented as of this encounter
--- OUTSIDE RECORDS SUMMARY | 2023-12-26 00:22 | XMS_ITS | Encounter Summary ---
Author Organization [facility] Address [address] [place] [address] Care Team Providers Care Composition Roll Maker And Cutter Name Role Phone Scot Naidu MD Primary Care Provider [phone] Encounter Details Date Type Department Care Team (Late st Contact Info) Description 11/06/2021 Lab Requisition [facility] Pathology & [place] [address] Outr Resulting Lab, Provider Social History Tobacco Use Types Packs/Day Years Used Date Smoking Tobacco: Never Assessed Sex and Gender Information Value Date Recorded Sex Assigned at Not on file Gender Identity Not on file Sexual Orientation Not on file documented as of this encounter Plan of Treatment Not on file documented as of this encounter Procedures Procedure Name Priority Date/Time Associated Diagnosis Comments ZZCOVID-19 TEST [facility] PCR Today 11/05/2021 8:30 EDT COVID-19 TESTING Routine 11/05/2021 8:30 EDT documented in this encounter Results * COVID-19 TEST [facility] PCR (11/05/2021 8:30 EDT) Swab 11/05/2021 8:30 EDT 11/06/2021 17:05 EDT Provider Outr Resulting Lab MICROBIOLOGY - GENERAL ORDERABLES [facility] [address] [place] [address] * COVID-19 TESTING (11/05/2021 8:30 EDT) COVID-19 rt-PCR Result Negative Negative 11/07/2021 11:18 EDT [facility] Comment: This test has not been FDA cleared or approved. This test has been authorized by FDA under an EUA for use by authorized laboratories. This test has been authorized only for detection of nucleic acid from 2019-nCoV, not for any other viruses or pathogens. This test is only authorized for the duration of the declaration that circumstances exist justifying the authorization of emergency use of in vitro diagnostic tests for detection and/or diagnosis of 2019-nCoV under section 564(b)(1) of Act, 21 U.S.C ?? 360bbb-3(b) (1), unless the authorization is terminated or revoked sooner. Negative results do not preclude 2019-nCoV infection and should not be used as the sole basis for treatment or other patient management decisions. Negative results must be combined with clinical observations, patient history, and epidemiological information. Testing was performed using the pedro SARS-CoV-2 assay ([employer] on the Pedro 6800 System Performing Lab [address] [facility] Lab 11/07/2021 11:18 EDT [facility] Swab 11/05/2021 8:30 EDT 11/06/2021 17:05 EDT Provider Outr Resulting Lab MICROBIOLOGY - GENERAL ORDERABLES [facility] [address] [place] [address] documented in this encounter Visit Diagnoses Not on filedocumented in this encounter Care Teams Composition Roll Maker And Cutter Relationship Specialty Start Date End Date Scot Naidu MD [address] [place] [address] PCP - General Family Medicine - Primary Care 07/20/20 documented as of this encounter
--- OUTSIDE RECORDS SUMMARY | 2023-12-26 00:22 | XMS_ITS | Encounter Summary ---
Author Organization [facility] Address [address] [place] [address] Care Team Providers Care Table Tender Name Role Phone Unknown, Provider Primary Care Provider [phone] Scot Naidu MD Primary Care Provider [phone] Encounter Details Date Type Department Care Team (Late st Contact Info) Description 01/19/2020 Lab Requisition [facility] Pathology & Laboratory Medicine - [address] [address] Outr Resulting Lab, Provider Social History Tobacco [...] Procedure Name Priority Date/Time Associated Diagnosis Comments FECAL BACTERIAL PATHOGENS BY PCR Routine 01/18/2020 8:30 EDT documented in this encounter Results * FECAL BACTERIAL PATHOGENS BY PCR (01/18/2020 8:30 EDT) Salmonella PCR Negative Negative 01/24/2020 14:11 EDT [facility] Shigella/Enteroin vasive E. coli Negative Negative 01/24/2020 14:11 EDT [facility] CAMPYLOBACTER PCR Negative Negative 01/24/2020 14:11 EDT [facility] Shiga Toxin PCR Negative Negative 0 14:11 EDT [facility] Feces SPECIMEN FROM RECTUM / Unknown 01/18/2020 8:30 EDT 01/20/2020 7:16 EDT Narrative [facility] - 01/24/2020 14:11 EDT No Yersinia or Vibrio species isolated. Testing performed by [facility] via culture method. PCR test will be credited. Provider Outr Resulting Lab MICROBIOLOGY - GENERAL ORDERABLES [facility] [address] [place] [address] documented in this encounter Visit Diagnoses Not on filedocumented in this encounter Care Teams Table Tender Relationship Specialty Start Date End Date Unknown, Provider, PCP - General 12/17/11 07/19/20 Scot Naidu MD [address] [place] [address] PCP - General Family Medicine - Primary Care 07/20/20 documented as of this encounter
--- OUTSIDE RECORDS SUMMARY | 2023-12-26 00:22 | XMS_ITS | Clinical Summary ---
Author Organization [facility] Address [facility] [place] [address] Care Team Providers Care Engineering Vice President Name Role Phone Scot Naidu MD Primary Care Provider [phone] Allergies Active Allergy Reactions Criticality Noted Date Comments Prednisone 01/25/2022 Medications Medication Sig Dispensed Refills Start Date End Date Status LORazepam (Ativan) 0.5 mg Tablet TAKE ONE TABLET BY MOUTH AT BEDTIME NEEDED FOR ANXIETY 01/16/2022 Active escitalopram (Lexapro) 10 mg Tablet Take 5 mg by mouth daily. PT cuts in half takes 5mg once daily 10/03/2021 Active acetaminophen (Tylenol) 500 mg Tablet Take 2 tablets by mouth every 8 hours as needed for Pain. 30 tablet 1 02/05/2022 Active ibuprofen (Advil) 600 mg Tablet Take 1 tablet by mouth every 6 hours as needed for Pain. 30 tablet 1 02/05/2022 Active Active Problems Problem Noted Date Diagnosed Date Nevus 08/11/2015 Social History Tobacco Use Types Packs/Day Years Used Date Smoking Tobacco: Never Smokeless Tobacco: Never Alcohol Use Standard Drinks/Week Comments Yes 0 (1 standard drink = 0.6 oz pur e alcohol) seldom Sex and Gender Information Value Date Recorded Sex Assigned at Not on file Gender Identity Not on file Sexual Orientation Not on file Last Filed Vital Signs Vital Sign Reading [...] 11.2 oz) 022 10:43 AM EDT Height 165 cm (5' 4.96) 01/25/2022 10: 46 AM EDT Body Mass Index 20.78 01/25/2022 10:46 AM EDT Plan of Treatment Health Maintenance Due Date Last Done Comments CT Colonography 1955 FIT DNA 1955 FIT 1955 Sigmoidoscopy 1955 Hepatitis C Screening 1974 Tdap adult 1975 Tetanus vaccine 1975 Breast Cancer Share Decision Needed 1996 Breast Cancer screening 1996 Zoster vaccine (1 of 2) 2006 Advance Directive 2011 Bone Density Scan 2021 Pneumoccocal Vaccine: 65+ (1 of 1 - PCV) 2021 Covid-19 Vaccine (1 - 2022-24 season) 2023 Influenza (Flu) vaccine (1 o f 1 - Influenza standard series) 12/21/2023 Colonoscopy 10/24/2024 10/24/2014, 10/24/2014 Colorectal Cancer Screening 10/24/2024 Sigmoidoscopy (10 year) with FIT yearly 10/24/2024 0 10/24/2014, 10/24/2014 Procedures Procedure Name Priority Date/Time Associated Diagnosis Comments COLONOSCOPY Routine 10/24/2014 10:43 AM EDT from Last 3 Months or Most Recently Relevant to Health Maintenance Results * COLONOSCOPY (10/24/2014 10:43 AM EDT) COLONOSCOPY [facility] Endoscopy ___ Patient Name: Unruly Reyes ? Procedure Date: 10/24/2014 10:43 AM ? Date of : 1955 ? Age: 59 ? Order #: [id number] ? ___ Procedure: ? Colonoscopy Indications: ? [...] Procedure Code(s): ?? --- Professional --- ? 55246, Colonoscopy, flexible; ? diagnostic, including collection of ? specimen(s) by brushing or washing, ? when performed (separate procedure) CPT copyright 2014 [employer]. All rights reserved. The codes documented in this report are preliminary and upon machine inker review may be revised to meet current compliance requirements. Attending Participation: ? I personally performed the entire procedure. ? Vinicio Mcdermott MD 10/24/2014 12:35 PM This report has been signed electronically. Number of Addenda: 0 Note Initiated On: 10/24/2014 10:43 AM PROVATION 10/24/2014 10:4 3 AM EDT Scot Naidu MD GENERAL SURGICAL ORDERABLES PROVATION from Last 3 Months or Most Recently Relevant to Health Maintenance Advance Directives * Attempt Cardiopulmonary Resuscitation - Inpatient (Latest Code Status on File) Date Activated Date Inactivated Comments 02/05/2022 10:58 AM 02/05/2022 5:05 PM Question Answer Comments Code Status decision made by: Patient Care Teams Engineering Vice President Relationship Specialty Start Date End Date Scot Naidu MD [address] [place] [address] PCP - General 10/14/14
--- OUTSIDE RECORDS SUMMARY | 2023-12-26 00:22 | XMS_ITS | Encounter Summary ---
[place] [address] Care Team Providers Care Picking Supervisor Name Role Phone Scot Naidu MD Primary Care Provider [phone] Encounter Details Date Type Department Care Team (Latest Contact Info) Description 03/07/2022 Travel Social History Tobacco Use Types Packs/Day Years [...] on filedocumented in this encounter Care Teams Picking Supervisor Relationship Specialty Start Date End Date Scot Naidu MD [address] [place] [address] [address] [place] [address] PCP - General 10/14/14 documented as of this encounter
--- OUTSIDE RECORDS SUMMARY | 2023-12-26 00:22 | XMS_ITS | Referral Summary ---
Author Organization [facility] Address [address] [place] [address] Care Team Providers Care Bench Grinder Name Role Phone Scot Naidu MD Primary Care Provider [phone] [phone] Social History Tobacco Use Types Packs/Day Years Used Date Smoking Tobacco: Never Assessed Sex and Gender Information Value Date Recorded Sex Assigned at Not on file Gender Identity Not on file Sexual Orientation Not on file Plan of Treatment Not on file Care Teams Bench Grinder Relationship Specialty Start Date End Date Scot Naidu MD [address] [place] [address] PCP - General Family Medicine - Primary Care 07/20/20
--- OUTSIDE RECORDS SUMMARY | 2023-12-26 00:22 | XMS_ITS | Encounter Summary ---
Author Organization [facility] Address [address] [place] [address] Care Team Providers Care Paper Rewinder Name Role Phone Unknown, Provider Primary Care Provider Encounter Details Date Type Department Care Team (Late st Contact Info) Description 12/16/2011 Results Only [facility] - [facility] ([facility] [place] [address] [place] [address] Ceci Diane MD [address] [place] [address] Social History Tobacco Use Types Packs/Day Years Used Date Smoking Tobacco: Never Assessed Sex and Gender Information Value Date Recorded Sex Assigned at Not on file Gender Identity Not on file Sexual Orientation Not on file documented as of this encounter Plan of Treatment Not on file documented as of this encounter Procedures Procedure Name Priority Date/Time Associated Diagnosis Comments PAP TEST- RESULT ONLY Routine 12/16/2011 0:00 EDT documented in this encounter Results * PAP TEST- RESULT ONLY (12/16/2011 0:00 EDT) Pathology Report: CYTOPATHOLOGY REPORT Reports generated via electronic interface contain original data; however they are lacking the format of the original report. Caution should be taken when reading/interpreti ng unformatted reports. Name: ? UNRULY REYES ? Accession #: ? [id number] ? : ? 1955 (Age: 56) ??F ?Collect Date: ? 12/16/2011 ? Location: ? [facility] ? Receive Date: ? 12/17/2011 ? Provider: CECI DIANE MD Copy to: ? Final Report SPECIMEN ADEQUACY ? Satisfactory for Evaluation - transformation zone component present GENERAL CATEGORIZATION ? Negative for Intraepithelial Lesion or Malignancy ?? Specimen/Source: ??Pap Test, Cervix/Endocervix, ThinPrep Imaging System with manual evaluation Document reviewed and electronically signed by: ? ADILSON VALDEZ MD ? Report ??Date: 12/27/2011 14:26 HPV with Pap Test ? Date Ordered: ? 12/26/2011 ? Status: ?? Signed Out ?Date Complete: ? 12/31/2011 ? By: ??System Interface ? Date Reported: ? 12/31/2011 ? Interpretation RESULT: Negative for HPV. No E6 or E7 mRNA is detected from HPV types 16,18,31,33,35, 39,45,51,52,56,58, 59,66, and 68 by dynamo repairer mediated amplification. Comments Document reviewed and electronically signed by: ? System Interface ? Report date: 12/31/2011 By the signature above, the attending physician certifies that he/she has personally conducted a gross and/or microscopic examination of the described specimens and rendered or confirmed the above diagnosis. End of Report [facility] 12/16/2011 12/17/2011 Ceci Diane MD PATHOLOGY ORDERABLES [facility] [address] [place] [address] documented in this encounter Visit Diagnoses Not on filedocumented in this encounter Care Teams Paper Rewinder Relationship Specialty Start Date End Date Unknown, Provider, PCP - General 12/17/11 07/19/20 documented as of this encounter
--- OUTSIDE RECORDS SUMMARY | 2023-12-26 00:22 | XMS_ITS | Encounter Summary ---
Author Organization [facility] [place] [address] Care Team Providers Care Local Driver Name Role Phone Scot Naidu MD Primary Care Provider [phone] Encounter Details Date Type Department Care Team (Latest Contact Info) Description 03/07/2022 9:40 AM EST TH Visit (TeleHealth) [place] [address] Taurus Garcia MD [facility] [place] [address] Post-operative state Social History Tobacco Use Types Packs/Day Years Used Date Smoking Tobacco: Never Smokeless Tobacco: Never Alcohol Use Standard Drinks/Week Comments Yes 0 (1 standard drink = 0.6 oz pur e alcohol) seldom Sex and Gender Information Value Date Recorded Sex Assigned at Not on file Gender Identity Not on file Sexual Orientation Not on file documented as of this encounter Progress Notes * Taurus Garcia MD - 03/07/2022 9:40 AM EST Division of [place] [address] Postoperative Visit: Patient Active Problem List Diagnosis Code ??? Nevus D22.9 Subjective: Unruly Reyes returns to the office today for her postoperative visit. On 02/05/2022 she underwent a laproscopic removal of a pelvic mass . Her postoperative course was uncomplicated. She has been doing well since surgery. She Never took any narcotic pain medications and is having regular bowel movements. Her energy level is improving and she is eating well. She denies fevers, chills, dysuria, incisional concerns, abdominal pain, vaginal bleeding, nausea, vomiting or diarrhea. Objective: There were no vitals filed for this visit. There is no height or weight on file to calculate BMI. There is no height or weight on file to calculate BSA. Physical Exam appears well on the video interface. Surgical Pathology: ? DIAGNOSIS A - Right fallopian tube and ovary, salpingo-oophorectomy: ?? - Epidermoid cyst, ovary. ?? - Benign fallopian tube. B - Left fallopian tube and ovary, salpingo-oophorectomy: ?? - Benign ovary and fallopian tube without histologic abnormality. SPECIMEN(S) SUBMITTED A - RIGHT fallopian tube and ovary, excision (1) ?for frozen section B - LEFT fallopian tube and ovary, excision (1) CLINICAL INFORMATION Ovarian cyst SPECIMEN PROCESSING A - Labeled/Fixative: Right fallopian tube and ovary, fresh for frozen section. Tissue Description: Fragmented, salpingo-oophorectomy. RIGHT OVARY ?Size: 3.5 x 3.0 x 2.0 cm (aggregate). ?Outer Surface: pink-white to lo-yellow, smooth. ?Cut Surface: Aggregate of thin cyst wall fragments averaging 0.2 cm thick with ??smooth surfaces. There is abundant lo-yellow keratinaceous debris. Right Fallopian Tube: 5.2 x 0.6 cm, fimbriated. Sections/Processing: The following tissue is submitted for frozen section: FS 1-right ovarian cyst wall. Salt Operator sections in 7 cassettes as follows: ? A1: ??FS 1 frozen section remnant/right ovarian cyst wall ? A2-A4: ??Additional right ovarian cyst wall ? A5-A7: ??Right fallopian tube, entirely submitted B - Labeled/Fixative: Left fallopian tube and ovary, fresh. Tissue Description: Intact, salpingo-oophorectomy. LEFT OVARY ?Size: 2.2 x 0.8 x 0.8 cm. ?Outer Surface: Lo-yellow, cerebriform. ?Cut Surface: unremarkable. Left Fallopian Tube: 5.5 x 0.5 cm, fimbriated. Sections/Processing: Salt Operator sections in 4 cassettes as follows: ? B1: ??Left ovary ? B2-B4: ??And left fallopian tube Assessment and Plan: Unruly Reyes is a 66 y.o. with a pelvic mass that has thankfully returned as a benign epidermoid cyst of the ovary. She is doing well postoperatively and is advised that she may resume full activities at 6 weeks postoperatively. I reviewed her pathology with her. Given the benign nature of her disease, she thankfully does not require any further gynecologic oncology care and is kindly referred back to her usual providers for ongoing care. TAURUS GARCIA MD documented in this encounter Plan of Treatment Not on file documented as of this encounter Visit Diagnoses Diagnosis Post-operative state Other postprocedural status documented in this encounter Care Teams Local Driver Relationship Specialty Start Date End Date Scot Naidu MD [address] [place] [address] PCP - General 10/14/14 documented as of this encounter
--- OUTSIDE RECORDS SUMMARY | 2023-12-26 00:22 | XMS_ITS | Encounter Summary ---
Author Organization [facility] Address [address] [place] [address] Care Team Providers Care Neuro Intensivist Physician Name Role Phone Unknown, Provider Primary Care Provider [phone] Scot Naidu MD Primary Care Provider [phone] Encounter Details Date Type Department Care Team (Late st Contact Info) Description 12/14/2019 Lab Requisition [facility] Pathology & Laboratory Medicine - [address] [address] Outr Resulting Lab, Provider Social History Tobacco [...] Procedure Name Priority Date/Time Associated Diagnosis Comments T3, TOTAL Routine 12/14/2019 14:00 EDT HOMOCYSTEINE Routine 12/14/2019 14:00 EDT CORTISOL Routine 12/14/2019 14:00 EDT documented in this encounter Results * T3, TOTAL (12/14/2019 14:00 EDT) T3, Total 113 97 - 169 ng/dL 12/14/2019 21:55 EDT [facility] Blood VENOUS BLOOD / Unknown 12/14/2019 14:00 EDT 12/14/2019 21:07 EDT Provider Outr Resulting Lab CHEMISTRY & BLOOD GAS ORDERABLES [facility] [address] [place] [address] * (ABNORMAL) HOMOCYSTEINE (12/14/2019 14:00 EDT) [facility] Homocysteine 27.7(H) 5.0 - 13.9 umol/L 12/15/2019 15:12 EDT [facility] Comment:Results may be false ly elevated if sample is not collected on ice or is not removed from cells within 1 hour of collection. Blood VENOUS BLOOD / Unknown 12/14/2019 14:00 EDT 12/14/2019 21:07 EDT Narrative [facility] - 12/15/2019 15:12 EDT Reference range may not apply to non-fasting samples. ??It is not recommended that EDTA plasma and serum from the same patient be used interchangeably. ??Serum concentrations have been observed to be up to 10% higher than EDTA plasma. Reference range may not apply to serum results. Provider Outr Resulting Lab CHEMISTRY & BLOOD GAS ORDERABLES Performing Organization Address [facility] Co de Phone Number [facility] [address] [place] [address] * CORTISOL (12/14/2019 14:00 EDT) [facility] Cortisol 5 See Note ug/dL 12/14/2019 21:55 EDT [facility] Comment: NOTE: Reference Ranges (from [facility]): Collected Before 10:00 AM: ??4 - 23 ug/dL Collected After 5:00 PM: ?2 - 14 ug/dL The results of this assay can be falsely elevated due to the consumption of Biotin. Blood VENOUS BLOOD / Unknown 12/14/2019 14:00 EDT 12/14/2019 21:07 EDT Provider Outr Resulting Lab CHEMISTRY & BLOOD GAS ORDERABLES Performing Organization Address [facility] Co de Phone Number [facility] [address] [place] [address] documented in this encounter Visit Diagnoses Not on filedocumented in this encounter Care Teams Neuro Intensivist Physician Relationship Specialty Start Date End Date Unknown, Provider, PCP - General 12/17/11 07/19/20 Scot Naidu MD [address] [place] [address] PCP - General Family Medicine - Primary Care 07/20/20 documented as of this encounter
--- OUTSIDE RECORDS SUMMARY | 2023-12-26 00:22 | XMS_ITS | Encounter Summary ---
Author Organization [facility] [place] [place] [address] Care Team Providers Care Business Programmer Name Role Phone Scot Naidu MD Primary Care Provider [phone] Encounter Details Date Type Department Care Team (Latest Contact Info) Description 11/14/2015 - 11/14/2015 11:59 PM EDT Hospital Encounter [place] [address] [facility] [address] [place] [address] Discharge Disposition: Home Social History Tobacco Use [...] FILM LIBRARY STORAGE ONLY DX ANKLE Routine 11/14/2015 12:00 AM EDT documented in this encounter Results * Film Library- Storage Only DX Ankle (11/14/2015 12:00 AM EDT) Narrative RAD - 09/09/2017 12:33 AM EDT This exam is for storage only and is auto-finalizing. Washington Spaulding MD IMG FILM LIBRARY ORD ERABLES [place], [place] documented in this encounter Visit Diagnoses Not on filedocumented in this encounter Care Teams Business Programmer Relationship Specialty Start Date End Date Scot Naidu MD [address] [place] [address] PCP - General 10/14/14 documented as of this encounter
--- NOTE | 2023-12-26 14:41 | DI.RAD_ITS ---
Exam(s) XR LUMBAR SPINE COMPLETE EXAM: XR LUMBAR SPINE COMPLETE CLINICAL HISTORY: evaluate pathology,lumbar pain,m54.50. TECHNIQUE: 2D digital imaging was performed of the lumbar spine. Five images were obtained. AP, la teral, right oblique, left oblique and L5-S1 spot views were obtained. COMPARISON: CT CT ABDOMEN PELVIS WO from 11/01/2021 FINDINGS: BONES: No fracture or destructive lesion. There are endplate osteophytes seen at several levels of th e lumbar spine particularly at the L1-L2 disc level. Degenerative changes of the facets are seen at L5-S1. DISKS: There is disc space narrowing at L1-L2 and L4-L5. ALIGNMENT: Lumbar spinal alignment is within normal limits. No spondylolysis or spondylolisthesis. SOFT TISSUE: Normal. IMPRESSION: Moderate degenerative changes seen in the lumbar spine. DATA REPOSITORY: RADIATION DOSE DELIVERED:
== END 2023-12-26 00:40 ==
PROVIDERS: PCP Family Medicine; Visit Provider Nurse Practitioner Family
DX: M54.50 Low back pain, unspecified (principal)
CPT/HCPCS: 72110

== ENCOUNTER 2025-03-11 00:22 | Outpatient (CLI) | payer MEDICARE, SELFPAY ==
[2025-03-14 10:31] LABS: Lyme Ab w Rflx to Lyme Confirm Negative (Negative)
[2025-03-14 12:54] LABS: B. miyamotoi PCR Negative (Negative); Babesia divergens/MO-1 Negative (Negative); Ehrlichia muris eauclairensis Negative (Negative)
== END 2025-03-11 00:23 | disposition home or self-care (01) ==
LOC: LBO 00:22
PROVIDERS: PCP Nurse Practitioner Family; Visit Provider Nurse Practitioner Family
DX: M25.551 Pain in right hip (principal); R10.9 Unspecified abdominal pain; M25.571 Pain in right ankle and joints of right foot; G89.29 Other chronic pain
CPT/HCPCS: 36415; 87798; 86618

== ENCOUNTER 2025-03-15 08:36 | Emergency (ER) | payer MEDICARE, SELFPAY ==
[2025-03-15] VITALS (16 sets, daily range): BP systolic 160–208; BP diastolic 85–165; PULSE 73–121; RESP 9–24; TEMP 36.9; O2SAT 92–99
--- NOTE | 2025-03-15 09:00 | DI.CT_ITS ---
Exam(s) CT ABDOMEN PELVIS W EXAM: CT ABDOMEN PELVIS W CLINICAL HISTORY: RLQ abd Pain, N/V TECHNIQUE: Imaging Protocol: Axial computed tomography images with coronal and sagittal reformatted images were created and reviewed. CONTRAST MATERIAL: Intravenous: Omnipaque 350 Contrast volume:75 mL Oral: No COMPARISON: CT ABD PELVIS WITH CONTRAST from 08/17/[address] ABDOMEN PELVIS WO from 11/01/2021 FINDINGS: The examination is limited due to patient motion artifact. ABDOMEN: Lung Bases: There is stable scarring in the left lower lobe. No acute abnormality is identified. Liver: Normal density. No measurable mass. Portal, Superior Mesenteric, and Splenic Veins: Unremarkable. Gallbladder and Biliary Tract: No radiodense calculus or dilation. Pancreas: Normal density, no abnormal calcifications or inflammatory process. Spleen: Normal. Adrenals: No masses seen. Kidneys: Normal size, contour and axis. No radiodense stones or obstructive uropathy. There is simple bilateral renal cysts. No follow-up is recommended. Abdominal Aorta: Abdominal portion non-dilated. Atherosclerotic calcification is present. Bowel: There is diverticulosis of the colon without evidence of acute diverticulitis. There is no evidence of bowel obstruction or bowel wall thickening. There is no evidence of pneumatosis. Appendix is unremarkable. Peritoneal Cavity: No ascites, collection or mesenteric inflammatory response. No free air. Lymph Nodes: Within normal limits. Bones: Within normal limits for the patient's age. Soft Tissues: Unremarkable. PELVIS: Bladder: Symmetric distention, no gross wall thickening. Reproductive Organs: Unremarkable as visualized. Lymph Nodes: Within normal limits. Bones: Within normal limits for the patient's age. IMPRESSION: 1. No acute abdominal or pelvic process. 2. Colonic diverticulosis without evidence of acute diverticulitis. RADIATION DOSE DELIVERED: 364.04mGy.cm Total DLP DATA REPOSITORY: All CT scans at this facility are submitted to the National Radiology Data Registry (NRDR) Dose Index Registry (DIR) with the [employer] ([employer]). RADIATION OPTIMIZATION: All CT scans at this facility use at least one of these dose optimization techniques: automated exposure control; mA and/or kV adjustment per patient size (includes targeted exams where dose is matched to clinical indication); or iterative reconstruction.
--- NOTE | 2025-03-15 09:14 | ED.GENADUL_ITS ---
Discharge Plan Disposition Patient Disposition: Home Condition: Stable Discharge Details Clinical Impression: Abdominal pain, Blood in stool, Diverticulosis Primary Care Provider: Ketan Allen ED Provider: Sheron Cevallos Home Meds and New Rx's Prescriptions: New amoxicillin-pot clavulanate 875-125 mg tablet 1 tab PO BID 7 Days Qty: 14 0RF Rx Instructions: Take one tablet by mouth twice daily x 7 days Continued lorazepam 0.5 mg tablet 0.5 mg PO QHS PRN (Reason: anxiety) Qty: 10 0RF No Action cyclobenzaprine 5 mg tablet 5 mg PO TID PRN (Reason: muscle spasm) Qty: 10 0RF estradiol 0.01 % (0.1 mg/gram) cream 0.5 g vaginal DAILY Qty: 42.5 0RF Rx Instructions: Also massage a pea-sized amount around the vaginal opening. Use nightly for 14 days, then decrease use to 2-3x weekly. May increase to 1g if still discomfort escitalopram oxalate 10 mg tablet 10 mg PO DAILY Qty: 90 3RF ibuprofen 600 mg tablet 600 mg PO TID PRNQty: 60 3RF Discharge Instructions Instructions: Diverticulosis, Abdominal Pain, Adult ED, Bloody Stools, Adult ED Additional Instructions: At this time no evidence for bowel obstruction, appendicitis or urinary tract infection. Please stay away from anything fried fatty spicy or dairy for the next 2 to 3 days. Advance as tolerated. Please collect a stool sample at home and bring in to the lab at your convenience. Please take the nausea medication as directed 20 to 30 minutes prior to eating or drinking anything. Please take the antibiotic with yogurt or probiotic as directed. Your Lyme panel was negative. Follow up with primary care provider in 3-5 days. Return to ED sooner if any worsening or concerns. Thank you for allowing us to care for you today. Stand Alone Forms: Portal Information Referrals: Ketan Allen, [employer] [Primary Care Provider, Medicine] - 5 days Referral Note: ER follow-up, call for an appointment Clinical Impression: Blood in stool; Abdominal pain HPI General Mode of arrival: ambulatory . Date/Time Provider Initiated Documentation: 03/15/25 08:58 . Limitations to Documentation: no limitations . Information obtained by: patient, RN notes reviewed and old records reviewed . HPI Narrative: 69-year-old female presents to the ER with a chief complaint of right lower quadrant abdominal pain, nausea and bright red blood in her stool this morning. She reports nausea and abdominal pain intermittently for the last 1 to 2 weeks. Does have a history of back problems but she has been seeing a physical therapist for. Does have a history of diverticulosis. Abdominal surgical history includes oophorectomy and fallopian tube removal. She is very anxious and tearful. She is slightly tachycardic and hypertensive upon arrival. She does have a history of anxiety. Related Data Home Medications ?Medication ?Instructions ?Recorded ?Confirmed ibuprofen 600 mg tablet 600 mg PO TID PRN #60 tabs 0 08/11/18 03/15/25 estradiol 0.01% (0.1 mg/gram) 0.5 g vaginal DAILY #42. 5 grams 01/09/23 03/15/25 vaginal cream cyclobenzaprine 5 mg tablet 5 mg PO TID PRN muscle spa sm #10 12/29/24 03/15/25 tabs escitalopram oxalate 10 mg tablet 10 mg PO DAILY #90 t abs 03/09/25 03/15/25 amoxicillin 875 mg-potassium 1 tab PO BID 7 days #14 t abs 03/15/25 clavulanate 125 mg tablet lorazepam 0.5 mg tablet 0.5 mg PO QHS PRN anxiety #1 0 tabs 03/15/25 Previous Rx's ?Medication ?Instructions ?Recorded ibuprofen 600 mg tablet 600 mg PO TID PRN #60 tabs 0 08/11/18 estradiol 0.01% (0.1 mg/gram) 0.5 g vaginal DAILY #42. 5 grams 01/09/23 vaginal cream cyclobenzaprine 5 mg tablet 5 mg PO TID PRN muscle spa sm #10 12/29/24 tabs escitalopram oxalate 10 mg tablet 10 mg PO DAILY #90 t abs 03/09/25 amoxicillin 875 mg-potassium 1 tab PO BID 7 days #14 t abs 03/15/25 clavulanate 125 mg tablet lorazepam 0.5 mg tablet 0.5 mg PO QHS PRN anxiety #1 0 tabs 03/15/25 Allergies Allergy/AdvReac Type Severity Reaction Status Date / Time methylprednisolone (From Allergy Severe Hives, Verified 12/29/24 09:20 Depo-Medrol) confused, hard to breath paroxetine (From Paxil) AdvReac Severe H/As, Verified 12/29/24 09:20 nausea, ringing in ears, stress incont vortioxetine (From AdvReac Severe NAUSEA, Verified 12/29/24 09:20 Trintellix) H/As, INCREASED IRRITATION General Stated Complaint: Abd Prob LUIS M: 3 Review of Systems All systems reviewed & are unremarkable except as noted in HPI and below Constitutional Constitutional: Reports as per HPI Gastrointestinal Gastrointestinal: Reports abdominal pain, Reports hematochezia and Reports nausea Psychiatric Psychiatric: Reports anxiety Exam Narrative Exam Narrative: Constitutional: Alert and oriented x3. Appears stated age. Normal body habitus. Patient is anxious and tearful. Head: Normocephalic, no trauma. Eyes: Pupils PERRL, Red reflex noted, EOM's intact. Eyelids symmetrical without lesions, discharge, or swelling. ENT: Bilateral TM's WNL, External ear normal to inspection, no mastoid TTP, swelling, or erythema, Nasal turbinates WNL, no nasal discharge. Normal dentition, Posterior pharynx WNL, no exudate. Chest: RRR, Normal S1, S2, distal pulses intact. Resp: Lungs clear to auscultation bilaterally, no wheezes, rales, or rhonchi. Abdomen: Soft, non-distended, hypoactive bowel sounds all 4 quads. Left lower quadrant right lower quadrant abdominal pain with palpation, no masses or guarding noted. Musculoskeletal: Normal gait, Moves all 4 extremities without difficulty. Skin: No suspicious rashes or lesions. Capillary refill less than 2 sec. Neurologic: Cranial nerves II-XII intact. Alert and oriented x 3. Motor: No deficits noted. Sensory: Intact bilaterally all 4 extremities. Hematologic/Lymphatic: No ecchymosis, no lymphadenopathy. Course Vital Signs Vital signs: Vital Signs Temperature 36.9 C 03/15/25 08:57 Pulse 112 H 03/15/25 08:57 Respiratory Rate 15 03/15/25 08:57 Blood Pressure 181/123 H 03/15/25 08:57 Pulse Oximetry 99 03/15/25 08:57 Temperature 36.9 C 03/15/25 08:57 Temperature Source Temporal Artery Scan 03/15/25 08:57 Pulse 112 H 03/15/25 08:57 Respiratory Rate 15 03/15/25 08:57 Blood Pressure 181/123 H 03/15/25 08:57 Blood Pressure Position Sitting 03/15/25 08:57 Pulse Oximetry 99 03/15/25 08:57 Oxygen Delivery Method Room Air 03/15/25 08:57 Oxygen Flow Rate 0 03/15/25 08:57 Pain Level 1 03/15/25 08:57 Medical Decision Making 69-year-old female presents to the ER with a chief complaint of right lower quadrant abdominal pain, nausea and bright red blood in her stool this morning. She reports nausea and abdominal pain intermittently for the last 1 to 2 weeks. Does have a history of back problems but she has been seeing a physical therapist for. Does have a history of diverticulosis. Abdominal surgical history includes oophorectomy and fallopian tube removal. She is very anxious and tearful. She is slightly tachycardic and hypertensive upon arrival. She does have a history of anxiety. Workup ordered including CBC CMP lipase, CT abdomen pelvis, Zofran and 4.5 lorazepam. No evidence of diverticulitis, no appendicitis, no bowel obstruction. Discussed CT results with patient and family and lab results they verbalized understanding. All their questions were answered to the best my ability. Will order outpatient stool studies and an instructed to follow-up with PCP. This text was generated using [employer] dictation system, please disregard any oddities of phrase or misspellings. Medical Records Medical records reviewed: Yes I reviewed the patient's medical records. Lab Data Lab results reviewed: Yes I reviewed the patient's lab results. Labs: Laboratory Tests Range/Units 03/15/25 03/15/25 09:30 10:45 WBC (4.4-10.8) 10^3/uL 9.34 RBC (3.93-5.22) 10^6/uL 5.07 Hgb (11.2-15.7) g/dL 15.7 Hct (36.0-46.0) % 46.1 H MCV (80-95) fL 91 MCH (27.0-33.0) pg 31.0 MCHC (32.0-36.0) % 34.1 RDW (11.7-14.6) % 12.6 Plt Count (130-400) 10^3/uL 366 MPV (8.0-11.0) fL 10.5 Immature Gran % % 0.3 Neutrophils % % 77.0 Lymphocytes % % 17.9 Monocytes % % 4.3 Eosinophils % % 0.1 Basophils % % 0.4 Nucleated RBC % (0.0-0.3) % 0.0 Absolute Neutrophils (1.2-6.7) 10^3/uL 7.19 H Absolute Lymphocytes (1.2-3.4) 10^3/uL 1.67 Absolute Monocytes (0.1-0.8) 10^3/uL 0.40 Absolute Eosinophils (0.0-0.7) 10^3/uL 0.01 Absolute Basophils (0.0-0.2) 10^3/uL 0.04 Sodium (136-145) mmol/L 142 Potassium (3.5-5.1) mmol/L 3.5 Chloride (98-107) mmol/L 106 Carbon Dioxide (20.0-31.0) mmol/L 20.3 Anion Gap (3-11) mmol/L 15.7 H BUN (9-23) mg/dL 20 Creatinine (0.55-1.02) mg/dL 0.85 Est GFR (CKD-EPI 2020) (mL/min/1.73m2) 66.34 Glucose (74-106) mg/dL 116 H Calcium (8.3-10.6) mg/dL 9.8 Magnesium (1.6-2.6) mg/dL 2.0 Total Bilirubin (0.2-1.2) mg/dL 1.40 H AST (<34) U/L 19 ALT (10-49) U/L 17 Alkaline Phosphatase (46-116) U/L 87 Total Protein (5.7-8.2) g/dL 8.0 Albumin (3.4-5.0) g/dL 5.0 Lipase (<53) U/L 25 Urine Color (Yellow) Yellow Urine Clarity (Clear) Clear Urine pH (5-8) 5.5 Ur Specific [place] (1.005-1.025) 1.010 Urine Protein (Neg-Trace) mg/dL Negative Urine Ketones (Negative) mg/dL >=160 H Urine Blood (Negative) Moderate H Urine Nitrite (Negative) Negative Urine Bilirubin (Negative) Negative Urine Urobilinogen (Up to 0.2) mg/dL 0.2 Ur Leukocyte Esterase (Negative) Negative Urine RBC (0-2) HPF 3-5 H Urine WBC (0-5) HPF 0-2 Ur Epithelial Cells (Negative) HPF Few Urine Crystals (Negative) HPF Negative Urine Bacteria (Negative) HPF Rare Urine Casts (Negative) LPF Negative Urine Mucus (Negative) Negative Ur Culture Indicated? No Urine Glucose (Negative) mg/dL Negative PFSH All Active Problems (Updated 03/15/25 @ 12:24 by Sheron Cevallos NP) Diverticulosis (Acute) Blood in stool (Acute) Abdominal pain (Acute) Hip pain, bilateral (Acute) Frequent falls (Acute) Complex cyst of right ovary (Acute) Pelvic pain (Acute) Atrophic vaginitis (Acute) Sciatica (Acute) Facial lesion (Acute) Hip pain, right (Acute) Diverticulitis (Chronic) Diarrhea (Acute) Low vitamin B12 level (Acute) Abdominal pain (Acute) Anxiety disorder (Acute) Depression (Chronic) with underlying anxiety Complex regional pain syndrome (Acute) Mood disorder (Acute 04/26/16) Right ankle pain (Chronic) Surgical History Hx of bilateral oophorectomy H/O hand surgery 08/11/18 Release of right hand first extensor compartment; Dr. Núñez History of hysteroscopy History of ankle surgery ORIF rt per patient H/O laparoscopy per pt fibroids History of colonoscopy Family History Grandmother Diabetes Essential hypertension Personal history of malignant neoplasm COLON Stroke Father Alcohol abuse Mental disorder depression Cancer of kidney Mother Mental disorder depression Chronic ITP (idiopathic thrombocytopenic purpura) Social History Smoking/Tobacco Use Status: Never Second Hand Exposure: No Smoking risk assessment performed?: Yes Alcohol Intake: current Alcohol Intake frequency: 0-2 drinks per day Alcohol type: beer and wine Drug use: Never Substance use type: does not use Caregiver/Support person: No Pets and animals: Yes Pets and animals: dog(s) Sexually active: Yes Do you think of yourself as: straight/heterosexual Current gender identity: female What is your relationship status?: How often do you talk on the phone with friends or family?: three or more times per week How often do you get together with friends or relatives?: decline to answer How often do you attend restoration or rastafarian services?: decline to answer Do you belong to any clubs or organized social groups?: no Panel score (0-1 are the most socially isolated patients): 2 What type of physical activity do you participate in: walking Duration: 30-45 minutes/day Frequency: daily Mariana/Bahai: Ep[employer] Special mariana needs: No Seatbelt use: always Drive intox or ride w/intox bobcat driver/labor: No Do you feel safe at home: Yes Do you feel safe in your relationship?: Yes Female Reproductive History Menstrual Age of Menarche: 15 History History 3 Para 3 Hx # Term Pregnancies 3 Multiple births Hx # Pregnancies Ectopic pregnancies AB induced Hx Number of Living Children 3 AB spontaneous Past Pregnancies Del. Date GA/Weeks # Preg Succ Route Wgt Sex Labor Lgth Anesth esia Location Prov Complic 09/01/81 40 No Yes vaginal 3175.147 g Male 09/16/82 40 No Yes vaginal 3175.147 g Female 08/17/89 40 No Yes vaginal 3175.147 g Female
[2025-03-15 09:41] LABS: Abs Immature Grans 0.03 10^3/uL (0.0-0.06); HCT 46.1 % (36.0-46.0); HGB 15.7 g/dL (11.2-15.7); Immature Grans % 0.3 %; MCH 31.0 pg (27.0-33.0); MCHC 34.1 % (32.0-36.0); MCV 91 fL (80-95); MPV 10.5 fL (8.0-11.0); Platelet Count 366 10^3/uL (130-400); RBC 5.07 10^6/uL (3.93-5.22); RDW 12.6 % (11.7-14.6); RDW-SD 41.5 fL; WBC 9.34 10^3/uL (4.4-10.8)
[2025-03-15] MEDS: Ondansetron 4 MG/2 ML VIAL IVP (09:43)
[2025-03-15] MEDS: LORazepam 20 MG/10 ML VIAL IVP ×2 (09:44→10:09)
[2025-03-15] MEDS: Normal Saline 500 ML IV (09:45)
[2025-03-15 09:56] LABS: Lipase 25 U/L (<53); Magnesium 2.0 mg/dL (1.6-2.6)
[2025-03-15 09:58] LABS: ALT 17 U/L (10-49); AST 19 U/L (<34); Albumin 5.0 g/dL (3.4-5.0); Alkaline Phosphatase 87 U/L (46-116); Anion Gap 15.7 mmol/L (3-11); BUN 20 mg/dL (9-23); Bilirubin, Total 1.40 mg/dL (0.2-1.2); CO2 20.3 mmol/L (20.0-31.0); Calcium 9.8 mg/dL (8.3-10.6); Chloride 106 mmol/L (98-107); Glucose 116 mg/dL (74-106); Potassium 3.5 mmol/L (3.5-5.1); Sodium 142 mmol/L (136-145); Total Protein 8.0 g/dL (5.7-8.2)
[2025-03-15] MEDS: Normal Saline - Diluent 50 ML VIAL IJ (10:12)
[2025-03-15] MEDS: Normal Saline Flush 10 ML SYR IVP (10:13)
[2025-03-15] MEDS: Omnipaque 350 MG/ML 500 ML BTL-Imaging package IJ (10:13)
[2025-03-15 10:54] LABS: Glucose Negative (Negative)
[2025-03-15 11:03] LABS: C & S Indicated? No; WBC 0-2 HPF (0-5)
[2025-03-15] MEDS: Ondansetron O.D.T. 4 MG TABEF, 3 TABS/BTL PO (12:46)
== END 2025-03-15 13:00 | disposition home or self-care (01) ==
PROVIDERS: Emergency Provider Registered Nurse Emergency; PCP Nurse Practitioner Family
DX: K57.30 Diverticulosis of large intestine without perforation or abscess without bleeding (principal); K92.1 Melena; R11.0 Nausea
CPT/HCPCS: 99284; 99285; 36415; 96374; 96375; 96376; 80053; 83690; 96361; 74177; 81003; 81015; 83735; 85025; J2060; J2405